=== PATIENT | female | born 1985 | race American Indian/Alaskan Native ===

== ENCOUNTER 2016-12-03 18:40 | Emergency (ER) | payer SELFPAY ==
[2016-12-03 18:49] VITALS: BP 137/88
--- NOTE | 2016-12-03 18:53 | Emergency Department Report ---
Chief Complaint: Abdominal Pain Stated Complaint: ABD PAIN,CANNOT EAT,ANXIETY Time Seen by Provider: 12/03/16 18:51 - HPI History of Present Illness: pt c/o 1 month of abd pain and vomiting. - ROS Review of Systems: + n/v + abd pain - Exam Vital Signs: Vital Signs 12/03/16 18:46 Temperature 98.7 F Pulse Rate 84 Respiratory 18 Rate Blood Pressure 137/88 O2 Sat by Pulse 100 Oximetry Physical Exam: RUQ ttp abd soft MSE screening note: Focused history and physical exam performed. Due to findings the following was ordered: labs, us ED Disposition for MSE Condition: Stable Instructions: Abdominal Pain (ED)
[2016-12-03 19:16] LABS: Basophils % (Auto) 0.3 % (0.0-1.8); Eosinophils % (Auto) 2.1 % (0.0-4.3); Hemoglobin 11.3 gm/dl (10.1-14.3); Mean Corpuscular HGB Conc 32 % (30-34); Mean Corpuscular Hemoglobin 26 pg (28-32); Mean Corpuscular Volume 81 fl (79-97); Platelet Count 209 K/mm3 (140-440); Red Blood Count 4.34 M/mm3 (3.65-5.03); White Blood Count 6.4 K/mm3 (4.5-11.0)
[2016-12-03 19:43] LABS: Alanine Aminotransferase 6 units/L (7-56); Albumin 4.2 g/dL (3.9-5); Albumin/Globulin Ratio 1.3 %; Alkaline Phosphatase 38 units/L (35-129); Anion Gap 18 mmol/L; BUN/Creatinine Ratio 13.33; Blood Urea Nitrogen 8 mg/dL (7-17); Calcium 9.3 mg/dL (8.4-10.2); Carbon Dioxide 24 mmol/L (22-30); Chloride 97.6 mmol/L (98-107); Glucose 107 mg/dL (65-100); Lipase 39 units/L (13-60); Potassium 3.5 mmol/L (3.6-5.0); Sodium 136 mmol/L (137-145); Total Protein 7.5 g/dL (6.3-8.2)
[2016-12-03 19:46] LABS: Bilirubin,Urine NEG (Negative); Blood,Urine NEG (Negative); Ketones,Urine 20 mg/dL (Negative); Leukocyte Esterase,Urine NEG (Negative); Mucus,Urine 2+ /HPF; Nitrite,Urine NEG (Negative); Protein,Urine <15 mg/dL mg/dL (Negative)
--- NOTE | 2016-12-03 20:34 | Ultrasound Report ---
FINAL REPORT EXAM: US ABDOMEN LIMITED HISTORY: RUQ tenderness and vomiting TECHNIQUE: Directed sonography of the right upper quadrant. PRIORS: None. FINDINGS: Gallbladder is of normal size and echogenicity, with tiny and echogenic, but nonshadowing focus noted along the dependent wall. No other apparent echogenic or shadowing calculi. Wall thickness within normal limits. Intra-and extrahepatic bile ducts are of normal caliber. Liver has normal homogeneous echogenicity without focal abnormalities. Right kidney measures 10 cm in longest dimension and is grossly unremarkable. Visualized pancreatic parenchyma grossly unremarkable. IMPRESSION: 1. No acute findings.
--- NOTE | 2016-12-07 11:24 | ED Elopement Review ---
ED Pt Elopement review - Results review Lab results: Laboratory Tests 12/03/16 12/03/16 12/03/16 18:53 18:53 18:53 WBC 6.4 RBC 4.34 Hgb 11.3 Hct 35.0 MCV 81 MCH 26 L MCHC 32 RDW 17.0 H Plt Count 209 Lymph % (Auto) 36.3 H [place] % (Auto) 6.2 Eos % (Auto) 2.1 Baso % (Auto) 0.3 Lymph # 2.3 [place] # 0.4 Eos # 0.1 Baso # 0.0 Seg Neutrophils % 55.1 Seg Neutrophils # 3.5 Sodium 136 L Potassium 3.5 L Chloride 97.6 L Carbon Dioxide 24 Anion Gap 18 BUN 8 Creatinine 0.6 L Estimated GFR > 60 BUN/Creatinine Ratio 13.33 Glucose 107 H Calcium 9.3 Total Bilirubin 0.40 AST 12 ALT 6 L Alkaline Phosphatase 38 Total Protein 7.5 Albumin 4.2 Albumin/Globulin Ratio 1.3 Lipase 39 HCG, Qual Negative Urine Color Urine Turbidity Urine pH Ur Specific [place] Urine Protein Urine Glucose (UA) Urine Ketones Urine Blood Urine Nitrite Urine Bilirubin Urine Urobilinogen Ur Leukocyte Esterase Urine WBC (Auto) Urine RBC (Auto) U Epithel Cells (Auto) Urine Mucus 12/03/16 19:31 WBC RBC Hgb Hct MCV MCH MCHC RDW Plt Count Lymph % (Auto) [place] % (Auto) Eos % (Auto) Baso % (Auto) Lymph # [place] # Eos # Baso # Seg Neutrophils % Seg Neutrophils # Sodium Potassium Chloride Carbon Dioxide Anion Gap BUN Creatinine Estimated GFR BUN/Creatinine Ratio Glucose Calcium Total Bilirubin AST ALT Alkaline Phosphatase Total Protein Albumin Albumin/Globulin Ratio Lipase HCG, Qual Urine Color Yellow Urine Turbidity Clear Urine pH 6.0 Ur Specific [place] 1.019 Urine Protein <15 mg/dl Urine Glucose (UA) Neg Urine Ketones 20 Urine Blood Neg Urine Nitrite Neg Urine Bilirubin Neg Urine Urobilinogen 2.0 Ur Leukocyte Esterase Neg Urine WBC (Auto) 2.0 Urine RBC (Auto) 7.0 U Epithel Cells (Auto) 8.0 Urine Mucus 2+ - Call Back decision Pt Call Back Decision: No action required
== END 2016-12-04 05:57 | disposition left against medical advice (07) ==
LOC: ED 18:40
DX: R10.9 Unspecified abdominal pain (principal); R41.9 Unspecified symptoms and signs involving cognitive functions and awareness; R11.2 Nausea with vomiting, unspecified; Z53.21 Procedure and treatment not carried out due to patient leaving prior to being seen by health care provider
CPT/HCPCS: 36415; 76705; 80053; 81001; 83690; 84703; 85025

== ENCOUNTER 2016-12-05 15:13 | Emergency (ER) | payer SELFPAY ==
[2016-12-05 16:40] LABS: Alanine Aminotransferase 7 units/L (7-56); Albumin 4.1 g/dL (3.9-5); Albumin/Globulin Ratio 1.4 %; Alkaline Phosphatase 40 units/L (35-129); BUN/Creatinine Ratio 11.42; Blood Urea Nitrogen 8 mg/dL (7-17); Carbon Dioxide 22 mmol/L (22-30); Glucose 95 mg/dL (65-100); Lipase 47 units/L (13-60)
[2016-12-05 16:41] LABS: Anion Gap 18 mmol/L; Chloride 100.4 mmol/L (98-107); Potassium 4.1 mmol/L (3.6-5.0); Sodium 136 mmol/L (137-145)
[2016-12-05 17:11] LABS: Basophils % (Auto) 0.3 % (0.0-1.8); Eosinophils % (Auto) 4.2 % (0.0-4.3); Hematocrit 35.3 % (30.3-42.9); Hemoglobin 11.3 gm/dl (10.1-14.3); Mean Corpuscular HGB Conc 32 % (30-34); Mean Corpuscular Hemoglobin 26 pg (28-32); Mean Corpuscular Volume 82 fl (79-97); Platelet Count 210 K/mm3 (140-440); Red Blood Count 4.29 M/mm3 (3.65-5.03); Red Cell Distribution Width 17.6 % (13.2-15.2); White Blood Count 5.6 K/mm3 (4.5-11.0)
[2016-12-05] MEDS ORDERED: ATIVAN PO ONE (20:42)
[2016-12-05] MEDS ORDERED: ZOFRAN ODT PO ONE (20:42)
--- NOTE | 2016-12-05 20:45 | Emergency Department Report ---
ED General Adult HPI - General Chief complaint: Abdominal Pain Stated complaint: ABD PAIN/ANXIETY/VOMITING Time Seen by Provider: 12/05/16 20:30 Source: patient Mode of arrival: Ambulatory Limitations: No Limitations - History of Present Illness Initial comments: Patient comes into the ER today with complaints of abdominal pain for the past week. Patient states that the pain is worse with any type of eating. Patient describes the pain as crampy to sharp. Patient states that anytime she eats anything that the food will go down but after anywhere from 5-30 minutes, the food will come right back up. Patient states that she frequently has some diarrhea with her vomiting and abdominal pain as well. Patient also notes that she has been having a lot of anxiety for the past week as well. Patient states that she has made an appointment with mental health and is asking if she can have something for her panic attacks in the meantime. Patient denies any suicidal or homicidal ideations. - Related Data Previous Rx's Medication Instructions Recorded Last Taken Type LORazepam [Ativan] 0.5 mg PO BID PRN #20 tab 12/05/16 Unknown Rx Pantoprazole [Protonix] 40 mg PO QDAY #30 tablet 12/05/16 Unknown Rx Promethazine [Phenergan TAB] 25 mg PO Q8HR PRN #25 tab 12/05/16 Unknown Rx Allergies Allergy/AdvReac Type Severity Reaction Status Date / Time codeine Allergy Hives Verified 12/03/16 18:49 hydroxyzine HCl Allergy Shortness Verified 12/03/16 18:50 [From Vistaril] of Breath hydroxyzine pamoate Allergy Shortness Verified 12/03/16 18:50 [From Vistaril] of Breath methocarbamol [From Robaxin] Allergy Shortness Verified 12/03/16 18:50 of Breath sulfamethoxazole Allergy Hives Verified 12/03/16 18:50 [From Bactrim] trimethoprim [From Bactrim] Allergy Hives Verified 12/03/16 18:50 ED Review of Systems ROS: Stated complaint: ABD PAIN/ANXIETY/VOMITING Other details as noted in HPI Constitutional: denies: chills, fever Eyes: denies: eye pain, eye discharge, vision change ENT: denies: ear pain, throat pain Respiratory: denies: cough, shortness of breath, wheezing Cardiovascular: denies: chest pain, palpitations Endocrine: no symptoms reported Gastrointestinal: abdominal pain, nausea, vomiting, diarrhea. denies: constipation, hematemesis, melena, hematochezia Genitourinary: denies: urgency, dysuria, discharge Musculoskeletal: denies: back pain, joint swelling, arthralgia Skin: denies: rash, lesions Neurological: denies: headache, weakness, paresthesias Psychiatric: anxiety. denies: depression Hematological/Lymphatic: denies: easy bleeding, easy bruising ED Past Medical Hx - Past Medical History Previous Medical History?: Yes Hx GERD: Yes Hx Psychiatric Treatment: Yes (anxiety,depression) Additional medical history: anemia - Surgical History Past Surgical History?: No - Social History Smoking Status: Current Every Day Smoker Substance Use Type: Alcohol - Medications Home Medications: Home Medications Medication Instructions Recorded Confirmed Last Taken Type LORazepam [Ativan] 0.5 mg PO BID PRN #20 tab 12/05/16 Unknown Rx Pantoprazole [Protonix] 40 mg PO QDAY #30 tablet 12/05/16 Unknown Rx Promethazine [Phenergan TAB] 25 mg PO Q8HR PRN #25 tab 12/05/16 Unknown Rx ED Physical Exam - General Limitations: No Limitations General appearance: alert, in no apparent distress - Head Head exam: Present: atraumatic, normocephalic - Eye Eye exam: Present: normal appearance - ENT ENT exam: Present: mucous membranes moist - Neck Neck exam: Present: normal inspection - Respiratory Respiratory exam: Present: normal lung sounds bilaterally. Absent: respiratory distress - Cardiovascular Cardiovascular Exam: Present: regular rate, normal rhythm. Absent: systolic murmur, diastolic murmur, rubs, gallop - GI/Abdominal GI/Abdominal exam: Present: soft, tenderness (right upper quadrant), normal bowel sounds. Absent: guarding, rebound, hyperactive bowel sounds, hypoactive bowel sounds, organomegaly - Extremities Exam Extremities exam: Present: normal inspection - Back Exam Back exam: Present: normal inspection - Neurological Exam Neurological exam: Present: alert, oriented X3, CN II-XII intact - Psychiatric Psychiatric exam: Present: normal affect, normal mood, anxious - Skin Skin exam: Present: warm, dry, intact, normal color. Absent: rash ED Course Vital Signs 12/05/16 15:39 Temperature 98.5 F Pulse Rate 63 Respiratory 20 Rate Blood Pressure 112/67 O2 Sat by Pulse 100 Oximetry ED Medical Decision Making - Lab Data Result diagrams: 12/05/16 15:54 12/05/16 15:54 Lab Results 12/05/16 12/05/16 Range/Units 15:54 15:54 WBC 5.6 (4.5-11.0) K/mm3 RBC 4.29 (3.65-5.03) M/mm3 Hgb 11.3 (10.1-14.3) gm/dl Hct 35.3 (30.3-42.9) % MCV 82 (79-97) fl MCH 26 L (28-32) pg MCHC 32 (30-34) % RDW 17.6 H (13.2-15.2) % Plt Count 210 (140-440) K/mm3 Lymph % (Auto) 34.1 (13.4-35.0) % [place] % (Auto) 9.4 H (0.0-7.3) % Eos % (Auto) 4.2 (0.0-4.3) % Baso % (Auto) 0.3 (0.0-1.8) % Lymph # 1.9 (1.2-5.4) K/mm3 [place] # 0.5 (0.0-0.8) K/mm3 Eos # 0.2 (0.0-0.4) K/mm3 Baso # 0.0 (0.0-0.1) K/mm3 Seg Neutrophils % 52.0 (40.0-70.0) % Seg Neutrophils # 2.9 (1.8-7.7) K/mm3 Sodium 136 L (137-145) mmol/L Potassium 4.1 (3.6-5.0) mmol/L Chloride 100.4 (98-107) mmol/L Carbon Dioxide 22 (22-30) mmol/L Anion Gap 18 mmol/L BUN 8 (7-17) mg/dL Creatinine 0.7 (0.7-1.2) mg/dL Estimated GFR > 60 ml/min BUN/Creatinine Ratio 11.42 % Glucose 95 (65-100) mg/dL Calcium 9.0 (8.4-10.2) mg/dL Total Bilirubin 0.40 (0.1-1.2) mg/dL AST 13 (5-40) units/L ALT 7 (7-56) units/L Alkaline Phosphatase 40 (35-129) units/L Total Protein 7.0 (6.3-8.2) g/dL Albumin 4.1 (3.9-5) g/dL Albumin/Globulin Ratio 1.4 % Lipase 47 (13-60) units/L - Medical Decision Making Patient is nontoxic and hemodynamically stable. Patient was apparently here 2 days ago and left prior to treatment but did apparently have an ultrasound of her gallbladder performed here in this ER. Results obtained and reviewed with patient room today. Ultrasound gallbladder was unremarkable. Based on examination and history had to have some suspicion as to her symptoms being related to her gallbladder. I will refer patient to gastroenterologists and encourage patient to keep her mental health evaluation. Patient is in agreement with treatment plan the patient is stable for discharge. Critical care attestation.: If time is entered above; I have spent that time in minutes in the direct care of this critically ill patient, excluding procedure time. ED Disposition Clinical Impression: Right upper quadrant abdominal pain, Nausea vomiting and diarrhea, Anxiety Disposition: TO HOME OR SELFCARE Is pt being admited?: No Does the pt Need Aspirin: No Condition: Good Instructions: Biliary Colic (ED), Abdominal Pain (ED), Anxiety (ED), Gastroesophageal Reflux Disease (ED) Prescriptions: LORazepam [Ativan] 0.5 mg PO BID PRN #20 tab PRN Reason: Anxiety Pantoprazole [Protonix] 40 mg PO QDAY #30 tablet Promethazine [Phenergan TAB] 25 mg PO Q8HR PRN #25 tab PRN Reason: Nausea Referrals: PRIMARY CARE, [Primary Care Provider] - 3-5 Days [facility] [Provider Group] - 3-5 Days Time of Disposition: 21:44
[2016-12-05 21:25] LABS: Bilirubin,Urine NEG (Negative); Blood,Urine NEG (Negative); Ketones,Urine NEG (Negative); Leukocyte Esterase,Urine NEG (Negative); Mucus,Urine FEW /HPF; Nitrite,Urine NEG (Negative); Protein,Urine <15 mg/dL mg/dL (Negative); Urobilinogen,Urine < 2.0 mg/dL (<2.0)
[2016-12-05 22:11] VITALS: BP 114/75
== END 2016-12-05 22:08 | disposition home or self-care (01) ==
LOC: ED 15:13
DX: R10.11 Right upper quadrant pain (principal); R11.2 Nausea with vomiting, unspecified; R19.7 Diarrhea, unspecified; F41.9 Anxiety disorder, unspecified; F17.200 Nicotine dependence, unspecified, uncomplicated; D64.9 Anemia, unspecified; F32.9 Major depressive disorder, single episode, unspecified; Z88.2 Allergy status to sulfonamides; Z88.8 Allergy status to other drugs, medicaments and biological substances; Z88.5 Allergy status to narcotic agent
CPT/HCPCS: 36415; 80053; 81001; 81025; 83690; 85025; 99283; Q0162

== ENCOUNTER 2016-12-12 18:03 | Emergency (ER) | payer SELFPAY ==
[2016-12-12 19:12] LABS: Basophils % (Auto) 0.5 % (0.0-1.8); Eosinophils % (Auto) 3.4 % (0.0-4.3); Hematocrit 36.5 % (30.3-42.9); Hemoglobin 11.7 gm/dl (10.1-14.3); Mean Corpuscular HGB Conc 32 % (30-34); Mean Corpuscular Hemoglobin 27 pg (28-32); Mean Corpuscular Volume 83 fl (79-97); Platelet Count 182 K/mm3 (140-440); Red Blood Count 4.38 M/mm3 (3.65-5.03); Red Cell Distribution Width 17.3 % (13.2-15.2); White Blood Count 5.1 K/mm3 (4.5-11.0)
[2016-12-12 19:17] LABS: Urine Drugs of Abuse Note Disclamer
[2016-12-12 19:31] LABS: Anion Gap 17 mmol/L; Blood Urea Nitrogen 10 mg/dL (7-17); Calcium 9.6 mg/dL (8.4-10.2); Carbon Dioxide 26 mmol/L (22-30); Chloride 101.6 mmol/L (98-107); Glucose 85 mg/dL (65-100); Potassium 4.5 mmol/L (3.6-5.0); Sodium 140 mmol/L (137-145)
[2016-12-12 19:35] LABS: Bilirubin,Urine NEG (Negative); Blood,Urine NEG (Negative); Ketones,Urine NEG (Negative); Leukocyte Esterase,Urine NEG (Negative); Mucus,Urine FEW /HPF; Nitrite,Urine NEG (Negative); Protein,Urine <15 mg/dL mg/dL (Negative); Urobilinogen,Urine < 2.0 mg/dL (<2.0); WBC,Urine < 1.0 /HPF (0.0-6.0)
[2016-12-12] MEDS ORDERED: NACL 0.9% 1000 ML 1,000 ML IV ONE (21:47)
--- NOTE | 2016-12-12 22:05 | Emergency Department Report ---
ED Allergic Reaction HPI - General Chief complaint: Allergic Reaction Stated complaint: DIZZINESS/LIGHTHEADED Time Seen by Provider: 12/12/16 21:46 Source: patient, EMS Mode of arrival: Ambulatory Limitations: No Limitations - History of Present Illness Initial Comments: Pt is a 31 yr old F with a h/o anxiety who presents after an adverse reaction to taking presumed xanax. Pt reports she was having some anxiety when she asked her friend for a 1/2 tab of xanax. Pt reports after she took this tab she did not feel how she usually does after taking xanax. Pt reported jitters, nausea, and the opposite of what she usually feels. Pt reports she used to take xanax 2mg BID for a while 2 years ago, but has not taken any in a long time. Pt is not sure where this xanax came from. Otherwise no fevers, chills, OLGUIN, dizziness , vomiting, CP, SOB, abd pain, travel, or sick contacts. - Related Data Previous Rx's Medication Instructions Recorded Last Taken Type LORazepam [Ativan] 0.5 mg PO BID PRN #20 tab 12/05/16 Unknown Rx Ondansetron [Zofran Odt] 4 mg PO TID PRN #25 tab.rapdis 12/05/16 Unknown Rx Pantoprazole [Protonix] 40 mg PO QDAY #30 tablet 12/05/16 Unknown Rx Promethazine [Phenergan TAB] 25 mg PO Q8HR PRN #25 tab 12/05/16 Unknown Rx Allergies Allergy/AdvReac Type Severity Reaction Status Date / Time codeine Allergy Hives Verified 12/03/16 18:49 hydroxyzine HCl Allergy Shortness Verified 12/03/16 18:50 [From Vistaril] of Breath hydroxyzine pamoate Allergy Shortness Verified 12/03/16 18:50 [From Vistaril] of Breath methocarbamol [From Robaxin] Allergy Shortness Verified 12/03/16 18:50 of Breath sulfamethoxazole Allergy Hives Verified 12/03/16 18:50 [From Bactrim] trimethoprim [From Bactrim] Allergy Hives Verified 12/03/16 18:50 ED Review of Systems ROS: Stated complaint: DIZZINESS/LIGHTHEADED Other details as noted in HPI Comment: All other systems reviewed and negative ED Past Medical Hx - Past Medical History Previous Medical History?: Yes Hx GERD: Yes Hx Psychiatric Treatment: Yes (anxiety,depression) Additional medical history: anemia - Surgical History Past Surgical History?: No - Social History Smoking Status: Current Every Day Smoker Substance Use Type: Marijuana, Prescribed, Tranquilizers - Medications Home Medications: Home Medications Medication Instructions Recorded Confirmed Last Taken Type LORazepam [Ativan] 0.5 mg PO BID PRN #20 tab 12/05/16 Unknown Rx Ondansetron [Zofran Odt] 4 mg PO TID PRN #25 tab.rapdis 12/05/16 Unknown Rx Pantoprazole [Protonix] 40 mg PO QDAY #30 tablet 12/05/16 Unknown Rx Promethazine [Phenergan TAB] 25 mg PO Q8HR PRN #25 tab 12/05/16 Unknown Rx ED Physical Exam - General Limitations: No Limitations General appearance: alert, in no apparent distress - Head Head exam: Present: atraumatic, normocephalic - Eye Eye exam: Present: normal appearance - ENT ENT exam: Present: mucous membranes moist - Neck Neck exam: Present: normal inspection - Respiratory Respiratory exam: Present: normal lung sounds bilaterally. Absent: respiratory distress - Cardiovascular Cardiovascular Exam: Present: regular rate, normal rhythm. Absent: systolic murmur, diastolic murmur, rubs, gallop - GI/Abdominal GI/Abdominal exam: Present: soft, normal bowel sounds - Extremities Exam Extremities exam: Present: normal inspection - Back Exam Back exam: Present: normal inspection - Neurological Exam Neurological exam: Present: alert, oriented X3 - Psychiatric Psychiatric exam: Present: normal affect, normal mood - Skin Skin exam: Present: warm, dry, intact, normal color. Absent: rash ED Course Vital Signs 12/12/16 12/12/16 18:42 21:42 Temperature 98.7 F 98.2 F Pulse Rate 68 65 Respiratory 16 18 Rate Blood Pressure 116/74 Blood Pressure 116/71 [Left] O2 Sat by Pulse 100 100 Oximetry ED Medical Decision Making - Lab Data Result diagrams: 12/12/16 19:03 12/12/16 19:03 - EKG Data -: EKG Interpreted by Me - EKG Data 12/12/16 22:05 EKG 2159, normal sinus rhythm with sinus arrhythmia at 76 bpm, QTc 465 ms, normal axis, no LVH, no ST changes, no STEMI - Medical Decision Making Instructed patient to refrain from taking other people's medications Given tylenol 1gm for OLGUIN Critical care attestation.: If time is entered above; I have spent that time in minutes in the direct care of this critically ill patient, excluding procedure time. ED Disposition Clinical Impression: Accidental overdose, Headache Disposition: DC-01 TO HOME OR SELFCARE Is pt being admited?: No Condition: Stable Instructions: Benzodiazepine Abuse (ED), Acute Headache (ED) Referrals: PRIMARY CARE, [Primary Care Provider] - 3-5 Days
[2016-12-12] MEDS ORDERED: TYLENOL PO ONE (22:31)
[2016-12-12] MEDS ORDERED: ZOFRAN IV ONE (23:22)
[2016-12-12] MEDS ORDERED: ZOFRAN ONE (23:22)
[2016-12-12 23:58] VITALS: BP 108/70
== END 2016-12-12 23:55 | disposition home or self-care (01) ==
LOC: ED 18:03
DX: T65.91XA Toxic effect of unspecified substance, accidental (unintentional), initial encounter (principal); R51 Headache; K21.9 Gastro-esophageal reflux disease without esophagitis; F41.9 Anxiety disorder, unspecified; F32.9 Major depressive disorder, single episode, unspecified; D64.9 Anemia, unspecified; F17.200 Nicotine dependence, unspecified, uncomplicated; F12.90 Cannabis use, unspecified, uncomplicated; Z88.5 Allergy status to narcotic agent; Y92.89 Other specified places as the place of occurrence of the external cause
CPT/HCPCS: 36415; 80048; 80307; 81001; 81025; 85025; 93005; 93010; 96361; 96374; 99284; G0480; J2405; J7030; 80320

== ENCOUNTER 2017-11-07 21:09 | Emergency (ER) | payer SELFPAY ==
[2017-11-07 23:16] LABS: Basophils % (Auto) 0.3 % (0.0-1.8); Eosinophils # (Auto) 0.2 K/mm3 (0.0-0.4); Eosinophils % (Auto) 3.4 % (0.0-4.3); Hematocrit 32.3 % (30.3-42.9); Hemoglobin 10.4 gm/dl (10.1-14.3); Lymphocytes # (Auto) 2.7 K/mm3 (1.2-5.4); Lymphocytes % (Auto) 48.9 % (13.4-35.0); Mean Corpuscular HGB Conc 32 % (30-34); Mean Corpuscular Hemoglobin 26 pg (28-32); Mean Corpuscular Volume 81 fl (79-97); Monocytes # (Auto) 0.5 K/mm3 (0.0-0.8); Monocytes % (Auto) 8.8 % (0.0-7.3); Platelet Count 220 K/mm3 (140-440); Red Cell Distribution Width 14.5 % (13.2-15.2)
[2017-11-07 23:30] LABS: Alanine Aminotransferase 7 units/L (7-56); Albumin 4.6 g/dL (3.9-5); BUN/Creatinine Ratio 18; Blood Urea Nitrogen 11 mg/dL (7-17); Calcium 9.5 mg/dL (8.4-10.2); Hemolysis Index 1
[2017-11-07] MEDS ORDERED: ZOFRAN IV ONE (23:41)
[2017-11-07] MEDS ORDERED: LIDOCAINE VISCOUS 2% PO ONE (23:41)
[2017-11-07] MEDS ORDERED: NACL 0.9% 1000 ML 1,000 ML IV ONE (23:41)
[2017-11-07] MEDS ORDERED: ALUM-MAG HYDROX-SIMETH 200-200-20MG/5ML PO ONE (23:41)
--- NOTE | 2017-11-07 23:56 | Emergency Department Report ---
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 The patient says that when she is eating she feels short of breath but it stops as soon as she has done and she says it feels like the food sits in the middle of her chest. She has been trying to take Zantac 150 mg twice daily for her symptoms without much relief. She does have a history of GERD and says that she has set up to see a shake feeder this coming Friday, in 5 days. No recent travel or sick contacts at home. She denies any fever, back pain, cough, dysuria, vaginal bleeding or discharge. She is still currently slightly nauseated. She says that her upper abdominal pain is a 6 out of 10 in intensity. ED Past Medical Hx - Past Medical History Previous Medical History?: Yes Hx GERD: Yes Hx Psychiatric Treatment: Yes (anxiety,depression) Additional medical history: anemia - Surgical History Past Surgical History?: No - Social History Smoking Status: Never Smoker Substance Use Type: None - Medications Home Medications: Home Medications Medication Instructions Recorded Confirmed Last Taken Type LORazepam [Ativan] 0.5 mg PO BID PRN #20 tab 12/05/16 Unknown Rx Ondansetron [Zofran Odt] 4 mg PO TID PRN #25 tab.rapdis 12/05/16 Unknown Rx Pantoprazole [Protonix] 40 mg PO QDAY #30 tablet 12/05/16 Unknown Rx Promethazine [Phenergan TAB] 25 mg PO Q8HR PRN #25 tab 12/05/16 Unknown Rx Ondansetron [Zofran Odt] 4 mg PO Q8H PRN #10 tab.rapdis 11/08/17 Unknown Rx ED Review of Systems ROS: Stated complaint: N/V Other details as noted in HPI Comment: All other systems reviewed and negative Constitutional: denies: chills, fever Eyes: denies: eye pain, eye discharge, vision change ENT: denies: ear pain, throat pain Respiratory: denies: cough, wheezing Cardiovascular: denies: chest pain, palpitations Gastrointestinal: abdominal pain, nausea, vomiting Genitourinary: denies: urgency, dysuria, discharge Musculoskeletal: denies: back pain, joint swelling, arthralgia Skin: denies: rash, lesions Neurological: denies: headache, weakness, paresthesias Physical Exam - Physical Exam Vital Signs: Vital Signs 11/07/17 22:34 Temperature 98.4 F Pulse Rate 66 Respiratory 18 Rate Blood Pressure 117/74 O2 Sat by Pulse 99 Oximetry Physical Exam: GENERAL: The patient is well-developed well-nourished. HENT: Normocephalic. Atraumatic. Patient has moist mucous membranes. EYES: Extraocular motions are intact. Pupils equal reactive to light bilaterally. NECK: Supple. Trachea is midline. CHEST/LUNGS: Clear to auscultation. There is no respiratory distress noted. HEART/CARDIOVASCULAR: Regular. There is no tachycardia. There is no murmur. ABDOMEN: Abdomen is soft. There is some upper abdominal tenderness to palpation. No guarding or rebound tenderness. Patient has normal bowel sounds. There is no abdominal distention. SKIN: Skin is warm and dry. NEURO: The patient is awake, alert, and oriented. The patient is cooperative. The patient has no focal neurologic deficits. The patient has normal speech. MUSCULOSKELETAL: There is no tenderness or deformity. There is no limitation range of motion. There is no evidence of acute injury. ED Course Vital Signs 11/07/17 22:34 Temperature 98.4 F Pulse Rate 66 Respiratory 18 Rate Blood Pressure 117/74 O2 Sat by Pulse 99 Oximetry ED Medical Decision Making - Lab Data Result diagrams: 11/07/17 22:48 11/07/17 22:48 - Radiology Data Radiology results: report reviewed, image reviewed interpreted by me: Chest x-ray does not show any acute process. There are no pleural effusions, obvious pneumonia and there is no pneumothorax. Abdominal x-ray shows nonspecific nonobstructive bowel gas. Abdominal ultrasound shows no cholelithiasis or evidence of cholecystitis. There is no biliary ductal dilatation. The pancreas was normal as visualized with suboptimal depiction of the pancreatic tail. - Medical Decision Making Patient appears with the complaint of some nausea and vomiting and upper abdominal pain. During her ED course she started complaining of some right upper quadrant and/or lateral abdominal pain. She was given antiemetic medication and eventually she was given a tramadol for her discomfort. Labs were unremarkable and did not show any etiology of her symptoms. Normal chest and abdominal x-rays. Ultrasound did not show any cholelithiasis, cholecystitis , biliary ductal dilation, or any signs of abnormalities of the pancreas despite a mild elevation in the lipase level. Since patient still complained of some sharp right lateral abdominal pains, I suggested/encouraged a CT scan of the abdomen and pelvis to be done. However the patient did not want this imaging done at this time. She has good follow-up with gastroenterology coming up next week. She was discharged home with antiemetics and encouraged to return to the emergency Department with any worsening of her symptoms or any acute distress. - Differential Diagnosis pancreatitis, cholecystitis, cholelithiasis, GERD Critical Care Time: No Critical care attestation.: If time is entered above; I have spent that time in minutes in the direct care of this critically ill patient, excluding procedure time. ED Disposition Clinical Impression: Nausea & vomiting Qualifiers: Vomiting type: unspecified Vomiting Intractability: non-intractable Qualified Code(s): R11.2 - Nausea with vomiting, unspecified Abdominal pain Qualifiers: Abdominal location: unspecified location Qualified Code(s): R10.9 - Unspecified abdominal pain Disposition: DC- TO HOME OR SELFCARE Is pt being admited?: No Condition: Stable Instructions: Acute Nausea and Vomiting (ED), Abdominal Pain (ED) Additional Instructions: Please follow up with your primary care physician as well as with your previously scheduled appointment with gastroenterology. Return to the emergency Department with any worsening of your symptoms or any acute distress. Prescriptions: Ondansetron [Zofran Odt] 4 mg PO Q8H PRN #10 tab.rapdis PRN Reason: Nausea Referrals: PRIMARY CARE, [Primary Care Provider] - 3-5 Days Time of Disposition: 03:57
[2017-11-08 00:36] LABS: Bacteria,Urine 1+ /HPF (Negative); Bilirubin,Urine NEG (Negative); Blood,Urine NEG (Negative); Color,Urine Yellow (Yellow); Hyaline Casts,Urine 1 /LPF; Mucus,Urine FEW /HPF; Protein,Urine <15 mg/dL mg/dL (Negative); Urobilinogen,Urine < 2.0 mg/dL (<2.0)
[2017-11-08 01:56] VITALS: BP 104/64
[2017-11-08] MEDS ORDERED: ULTRAM PO ONE (02:42)
--- NOTE | 2017-11-08 08:59 | XRay Report ---
FINAL REPORT PROCEDURE: XR ABD SERIES W CXR 1V TECHNIQUE: Abdominal series complete, including supine and upright AP views of the abdomen and frontal chest. HISTORY: Abd pain COMPARISON: No prior studies are available for comparison. FINDINGS: Heart: Normal. Mediastinum/Vessels: Normal. Lungs/Pleural space: Normal. Bowel gas pattern: Nonobstructive. Masses or calcifications: None. Bony structures: No acute osseous abnormality. Other: No free intraperitoneal air. IMPRESSION: No acute abnormality.
--- NOTE | 2017-11-08 09:00 | Ultrasound Report ---
FINAL REPORT PROCEDURE: US ABDOMEN LIMITED TECHNIQUE: Real-time sonography in multiple planes of the gallbladder fossa and CBD with imaging of the adjacent liver, pancreas, and right kidney was performed with image documentation. CPT 11550 HISTORY: Upper abd pain COMPARISON: No prior studies are available for comparison. FINDINGS: Liver: Normal size and echotexture with no evidence of cystic or solid mass lesion. Gallbladder: Gallbladder is contracted. There are no stones. There is no wall thickening. There is minimal pericholecystic fluid which is nonspecific.. Intrahepatic bile ducts: Normal . Extrahepatic bile ducts: Normal . Pancreas: Normal as visualized with suboptimal depiction of the pancreatic tail. Right kidney: Normal echotexture. No focal renal mass, calculus, or hydronephrosis. Other: No free fluid. IMPRESSION: There is no cholelithiasis or evidence of cholecystitis. There is no biliary ductal dilatation.
== END 2017-11-08 04:09 | disposition home or self-care (01) ==
LOC: ED 21:09
DX: R11.2 Nausea with vomiting, unspecified (principal); R10.10 Upper abdominal pain, unspecified; K21.9 Gastro-esophageal reflux disease without esophagitis
CPT/HCPCS: 36415; 74022; 76705; 80053; 81001; 83690; 84703; 85025; 96361; 96374; 99284; J2405; J7030

== ENCOUNTER 2018-06-23 13:38 | Emergency (ER) | payer SELFPAY ==
[2018-06-23 13:55] VITALS: BP 122/81
[2018-06-23] MEDS ORDERED: PROVENTIL IH ONE (15:08)
[2018-06-23] MEDS ORDERED: TESSALON PERLES PO ONE (15:13)
--- NOTE | 2018-06-23 15:16 | Emergency Department Report ---
ED General Adult HPI - General Chief complaint: Dyspnea/Respdistress Stated complaint: CHEST PAIN/WHEEZING Time Seen by Provider: 06/23/18 15:08 Source: patient Mode of arrival: Ambulatory Limitations: No Limitations - History of Present Illness Initial comments: Patient presents emergency Department with chief complaint of a cough for the last week. Patient states she was seen here last week and given steroids for her cough. Patient states she returned today because she is not getting better. Patient denies any chest pain, abdominal pain, or headache. There are no other associated symptoms. -: Sudden Radiation: non-radiation Severity scale (0 -10): 0 Improves with: cold therapy Worsens with: none Associated Symptoms: denies other symptoms Treatments Prior to Arrival: none - Related Data Previous Rx's Medication Instructions Recorded Last Taken Type LORazepam [Ativan] 0.5 mg PO BID PRN #20 tab 12/05/16 Unknown Rx Ondansetron [Zofran Odt] 4 mg PO TID PRN #25 tab.rapdis 12/05/16 Unknown Rx Promethazine [Phenergan TAB] 25 mg PO Q8HR PRN #25 tab 12/05/16 Unknown Rx Loperamide [Imodium] 2 mg PO Q2HR #15 capsule 12/05/17 Unknown Rx Mag Hydrox/Aluminum Hyd/Simeth 30 ml PO QID PRN #1 bottle 12/05/17 Unknown Rx [Maalox Advanced Suspension] Ondansetron [Zofran Odt] 4 mg PO Q8H PRN #20 tab.rapdis 12/05/17 Unknown Rx Fluconazole [Diflucan TAB] 150 mg PO ONCE #1 tablet 02/21/18 Unknown Rx HYDROcodone/APAP 5-325 [[place] 1 - 2 each PO Q6HR PRN #10 tablet 02/21/18 Unknown Rx 5/325] ALBUTEROL Inhaler(NF) [VENTOLIN 1 puff IH PRN #1 inha 05/19/18 Unknown Rx Inhaler(NF)] Dextromethorphan HBr [Tussin Cough] 15 mg PO TID 7 Days #1 bottle 05/19/18 Unknown Rx Ibuprofen [Motrin 800 MG tab] 800 mg PO Q8HR PRN #20 tablet 05/19/18 Unknown Rx predniSONE [Deltasone] 10 mg PO QDAY #4 tab 05/19/18 Unknown Rx ALBUTEROL Inhaler(NF) [VENTOLIN 2 puff IH Q4HR #1 inha 06/23/18 Unknown Rx Inhaler(NF)] Benzonatate [Tessalon Perles] 100 mg PO Q8HR PRN #20 capsule 06/23/18 Unknown Rx Hydrocodone/Chlorphen P-Stirex 115 ml PO Q12HR PRN #180 skip.er.12h 06/23/18 Unknown Rx [Tussionex Pennkinetic Susp] predniSONE [Deltasone] 20 mg PO QDAY #15 tab 06/23/18 Unknown Rx Allergies Allergy/AdvReac Type Severity Reaction Status Date / Time codeine Allergy Hives Verified 12/03/16 18:49 hydroxyzine HCl Allergy Shortness Verified 12/03/16 18:50 [From Vistaril] of Breath hydroxyzine pamoate Allergy Shortness Verified 12/03/16 18:50 [From Vistaril] of Breath methocarbamol [From Robaxin] Allergy Shortness Verified 12/03/16 18:50 of Breath sulfamethoxazole Allergy Hives Verified 12/03/16 18:50 [From Bactrim] trimethoprim [From Bactrim] Allergy Hives Verified 12/03/16 18:50 ED Review of Systems ROS: Stated complaint: CHEST PAIN/WHEEZING Other details as noted in HPI Constitutional: denies: chills, fever Eyes: denies: eye pain, eye discharge, vision change ENT: denies: ear pain, throat pain Respiratory: cough. denies: shortness of breath, wheezing Cardiovascular: denies: chest pain, palpitations Endocrine: no symptoms reported Gastrointestinal: denies: abdominal pain, nausea, diarrhea Genitourinary: denies: urgency, dysuria, discharge Musculoskeletal: denies: back pain, joint swelling, arthralgia Skin: denies: rash, lesions Neurological: denies: headache, weakness, paresthesias Psychiatric: denies: anxiety, depression Hematological/Lymphatic: denies: easy bleeding, easy bruising ED Past Medical Hx - Past Medical History Previous Medical History?: Yes Hx GERD: Yes Hx Psychiatric Treatment: Yes (anxiety,depression) Additional medical history: anemia, GERD - Surgical History Past Surgical History?: No - Social History Smoking Status: Current Every Day Smoker Substance Use Type: Marijuana - Medications Home Medications: Home Medications Medication Instructions Recorded Confirmed Last Taken Type LORazepam [Ativan] 0.5 mg PO BID PRN #20 tab 12/05/16 Unknown Rx Ondansetron [Zofran Odt] 4 mg PO TID PRN #25 tab.rapdis 12/05/16 Unknown Rx Promethazine [Phenergan TAB] 25 mg PO Q8HR PRN #25 tab 12/05/16 Unknown Rx Loperamide [Imodium] 2 mg PO Q2HR #15 capsule 12/05/17 Unknown Rx Mag Hydrox/Aluminum Hyd/Simeth 30 ml PO QID PRN #1 bottle 12/05/17 Unknown Rx [Maalox Advanced Suspension] Ondansetron [Zofran Odt] 4 mg PO Q8H PRN #20 tab.rapdis 12/05/17 Unknown Rx Fluconazole [Diflucan TAB] 150 mg PO ONCE #1 tablet 02/21/18 Unknown Rx HYDROcodone/APAP 5-325 [[place] 1 - 2 each PO Q6HR PRN #10 tablet 02/21/18 Unknown Rx 5/325] ALBUTEROL Inhaler(NF) [VENTOLIN 1 puff IH PRN #1 inha 05/19/18 Unknown Rx Inhaler(NF)] Dextromethorphan HBr [Tussin Cough] 15 mg PO TID 7 Days #1 bottle 05/19/18 Unknown Rx Ibuprofen [Motrin 800 MG tab] 800 mg PO Q8HR PRN #20 tablet 05/19/18 Unknown Rx predniSONE [Deltasone] 10 mg PO QDAY #4 tab 05/19/18 Unknown Rx ALBUTEROL Inhaler(NF) [VENTOLIN 2 puff IH Q4HR #1 inha 06/23/18 Unknown Rx Inhaler(NF)] Benzonatate [Tessalon Perles] 100 mg PO Q8HR PRN #20 capsule 06/23/18 Unknown Rx Hydrocodone/Chlorphen P-Stirex 115 ml PO Q12HR PRN #180 skip.er.12h 06/23/18 Unknown Rx [Tussionex Pennkinetic Susp] predniSONE [Deltasone] 20 mg PO QDAY #15 tab 06/23/18 Unknown Rx ED Physical Exam - General Limitations: No Limitations General appearance: alert, in no apparent distress - Head Head exam: Present: atraumatic, normocephalic - Eye Eye exam: Present: normal appearance, PERRL, EOMI - ENT ENT exam: Present: mucous membranes moist - Neck Neck exam: Present: normal inspection - Respiratory Respiratory exam: Present: normal lung sounds bilaterally, wheezes. Absent: respiratory distress, rales - Cardiovascular Cardiovascular Exam: Present: regular rate, normal rhythm. Absent: systolic murmur, diastolic murmur, rubs, gallop - GI/Abdominal GI/Abdominal exam: Present: soft, normal bowel sounds. Absent: distended, tenderness - Extremities Exam Extremities exam: Present: normal inspection - Back Exam Back exam: Present: normal inspection - Neurological Exam Neurological exam: Present: alert, oriented X3, CN II-XII intact. Absent: motor sensory deficit - Psychiatric Psychiatric exam: Present: normal affect, normal mood - Skin Skin exam: Present: warm, dry, intact, normal color. Absent: rash ED Course Vital Signs 06/23/18 13:52 Temperature 98.8 F Pulse Rate 87 Respiratory 20 Rate Blood Pressure 122/81 O2 Sat by Pulse 99 Oximetry ED Medical Decision Making - Radiology Data Radiology results: report reviewed - Medical Decision Making Improved with the breathing treatment Critical care attestation.: If time is entered above; I have spent that time in minutes in the direct care of this critically ill patient, excluding procedure time. ED Disposition Clinical Impression: Bronchitis Disposition: DC-01 TO HOME OR SELFCARE Is pt being admited?: No Does the pt Need Aspirin: No Condition: Stable Instructions: Acute Bronchitis (ED) Additional Instructions: return if worse Prescriptions: ALBUTEROL Inhaler(NF) [VENTOLIN Inhaler(NF)] 2 puff IH Q4HR #1 inha Benzonatate [Tessalon Perles] 100 mg PO Q8HR PRN #20 capsule PRN Reason: Cough Hydrocodone/Chlorphen P-Stirex [Tussionex Pennkinetic Susp] 115 ml PO Q12HR PRN #180 skip.er.12h PRN Reason: Cough predniSONE [Deltasone] 20 mg PO QDAY #15 tab Referrals: PRIMARY CARE,MD [Primary Care Provider] - 3-5 Days Time of Disposition: 16:00
--- NOTE | 2018-06-23 15:18 | XRay Report ---
ROUTINE CHEST, TWO VIEWS: HISTORY: Shortness of breath. The trachea, heart, mediastinal contour, lung huffman and bony thorax are unremarkable. IMPRESSION: Unremarkable chest x-ray.
== END 2018-06-23 16:40 | disposition home or self-care (01) ==
LOC: ED 13:38
DX: J40 Bronchitis, not specified as acute or chronic (principal); K21.9 Gastro-esophageal reflux disease without esophagitis; F32.9 Major depressive disorder, single episode, unspecified; F41.9 Anxiety disorder, unspecified; D64.9 Anemia, unspecified; F17.200 Nicotine dependence, unspecified, uncomplicated; F12.10 Cannabis abuse, uncomplicated; Z88.5 Allergy status to narcotic agent; Z88.4 Allergy status to anesthetic agent; Z88.8 Allergy status to other drugs, medicaments and biological substances; Z88.2 Allergy status to sulfonamides
CPT/HCPCS: 71046; 94640

== ENCOUNTER 2018-06-28 11:47 | Emergency (ER) | payer SELFPAY ==
[2018-06-28 11:59] VITALS: BP 125/65
--- NOTE | 2018-06-28 13:27 | Emergency Department Report ---
ED Female HPI - General Chief complaint: Urogenital-Female Stated complaint: VAGINAL DISCHARGE/ABD PAIN Time Seen by Provider: 06/28/18 13:20 Source: patient Mode of arrival: Ambulatory Limitations: No Limitations - History of Present Illness MD Complaint: vaginal discharge, dysuria, pelvic pain Location: suprapubic Severity: mild Quality: cramping Improves with: none Are you Now?: No - Related Data Previous Rx's Medication Instructions Recorded Last Taken Type LORazepam [Ativan] 0.5 mg PO BID PRN #20 tab 12/05/16 Unknown Rx Ondansetron [Zofran Odt] 4 mg PO TID PRN #25 tab.rapdis 12/05/16 Unknown Rx Promethazine [Phenergan TAB] 25 mg PO Q8HR PRN #25 tab 12/05/16 Unknown Rx Loperamide [Imodium] 2 mg PO Q2HR #15 capsule 12/05/17 Unknown Rx Mag Hydrox/Aluminum Hyd/Simeth 30 ml PO QID PRN #1 bottle 12/05/17 Unknown Rx [Maalox Advanced Suspension] Ondansetron [Zofran Odt] 4 mg PO Q8H PRN #20 tab.rapdis 12/05/17 Unknown Rx Fluconazole [Diflucan TAB] 150 mg PO ONCE #1 tablet 02/21/18 Unknown Rx HYDROcodone/APAP 5-325 [[place] 1 - 2 each PO Q6HR PRN #10 tablet 02/21/18 Unknown Rx 5/325] ALBUTEROL Inhaler(NF) [VENTOLIN 1 puff IH PRN #1 inha 05/19/18 Unknown Rx Inhaler(NF)] Dextromethorphan HBr [Tussin Cough] 15 mg PO TID 7 Days #1 bottle 05/19/18 Unknown Rx Ibuprofen [Motrin 800 MG tab] 800 mg PO Q8HR PRN #20 tablet 05/19/18 Unknown Rx predniSONE [Deltasone] 10 mg PO QDAY #4 tab 05/19/18 Unknown Rx ALBUTEROL Inhaler(NF) [VENTOLIN 2 puff IH Q4HR #1 inha 06/23/18 Unknown Rx Inhaler(NF)] Benzonatate [Tessalon Perles] 100 mg PO Q8HR PRN #20 capsule 06/23/18 Unknown Rx Hydrocodone/Chlorphen P-Stirex 115 ml PO Q12HR PRN #180 skip.er.12h 06/23/18 Unknown Rx [Tussionex Pennkinetic Susp] predniSONE [Deltasone] 20 mg PO QDAY #15 tab 06/23/18 Unknown Rx Allergies Allergy/AdvReac Type Severity Reaction Status Date / Time codeine Allergy Hives Verified 12/03/16 18:49 hydroxyzine HCl Allergy Shortness Verified 12/03/16 18:50 [From Vistaril] of Breath hydroxyzine pamoate Allergy Shortness Verified 12/03/16 18:50 [From Vistaril] of Breath methocarbamol [From Robaxin] Allergy Shortness Verified 12/03/16 18:50 of Breath sulfamethoxazole Allergy Hives Verified 12/03/16 18:50 [From Bactrim] trimethoprim [From Bactrim] Allergy Hives Verified 12/03/16 18:50 ED Review of Systems ROS: Stated complaint: VAGINAL DISCHARGE/ABD PAIN Other details as noted in HPI Comment: All other systems reviewed and negative Constitutional: denies: chills, fever Respiratory: denies: cough, orthopnea, shortness of breath, SOB with exertion, SOB at rest Cardiovascular: denies: chest pain, palpitations, dyspnea on exertion, orthopnea Gastrointestinal: denies: abdominal pain, nausea, vomiting, diarrhea, constipation, hematemesis Genitourinary: dysuria, discharge (WHITISH,THICK AND ITCHY) ED Past Medical Hx - Past Medical History Hx GERD: Yes Hx Psychiatric Treatment: Yes (anxiety,depression) Additional medical history: anemia, GERD - Surgical History Past Surgical History?: No - Social History Smoking Status: Current Every Day Smoker Substance Use Type: None - Medications Home Medications: Home Medications Medication Instructions Recorded Confirmed Last Taken Type LORazepam [Ativan] 0.5 mg PO BID PRN #20 tab 12/05/16 Unknown Rx Ondansetron [Zofran Odt] 4 mg PO TID PRN #25 tab.rapdis 12/05/16 Unknown Rx Promethazine [Phenergan TAB] 25 mg PO Q8HR PRN #25 tab 12/05/16 Unknown Rx Loperamide [Imodium] 2 mg PO Q2HR #15 capsule 12/05/17 Unknown Rx Mag Hydrox/Aluminum Hyd/Simeth 30 ml PO QID PRN #1 bottle 12/05/17 Unknown Rx [Maalox Advanced Suspension] Ondansetron [Zofran Odt] 4 mg PO Q8H PRN #20 tab.rapdis 12/05/17 Unknown Rx Fluconazole [Diflucan TAB] 150 mg PO ONCE #1 tablet 02/21/18 Unknown Rx HYDROcodone/APAP 5-325 [[place] 1 - 2 each PO Q6HR PRN #10 tablet 02/21/18 Unknown Rx 5/325] ALBUTEROL Inhaler(NF) [VENTOLIN 1 puff IH PRN #1 inha 05/19/18 Unknown Rx Inhaler(NF)] Dextromethorphan HBr [Tussin Cough] 15 mg PO TID 7 Days #1 bottle 05/19/18 Unknown Rx Ibuprofen [Motrin 800 MG tab] 800 mg PO Q8HR PRN #20 tablet 05/19/18 Unknown Rx predniSONE [Deltasone] 10 mg PO QDAY #4 tab 05/19/18 Unknown Rx ALBUTEROL Inhaler(NF) [VENTOLIN 2 puff IH Q4HR #1 inha 06/23/18 Unknown Rx Inhaler(NF)] Benzonatate [Tessalon Perles] 100 mg PO Q8HR PRN #20 capsule 06/23/18 Unknown Rx Hydrocodone/Chlorphen P-Stirex 115 ml PO Q12HR PRN #180 skip.er.12h 06/23/18 Unknown Rx [Tussionex Pennkinetic Susp] predniSONE [Deltasone] 20 mg PO QDAY #15 tab 06/23/18 Unknown Rx ED Physical Exam - General Limitations: No Limitations General appearance: alert, in no apparent distress - Head Head exam: Present: atraumatic, normocephalic, normal inspection - ENT ENT exam: Present: normal exam, normal orophraynx, mucous membranes moist - Neck Neck exam: Present: normal inspection, full ROM. Absent: tenderness, meningismus, lymphadenopathy, thyromegaly - Respiratory Respiratory exam: Present: normal lung sounds bilaterally - Cardiovascular Cardiovascular Exam: Present: regular rate, normal rhythm, normal heart sounds - GI/Abdominal GI/Abdominal exam: Present: soft, normal bowel sounds. Absent: distended, tenderness, guarding, rebound, rigid, organomegaly, mass, bruit, pulsatile mass, hernia - Extremities Exam Extremities exam: Present: normal inspection, full ROM, normal capillary refill. Absent: pedal edema, calf tenderness - Back Exam Back exam: Present: normal inspection, full ROM. Absent: tenderness, CVA tenderness (R), CVA tenderness (L), muscle spasm, paraspinal tenderness, vertebral tenderness - Neurological Exam Neurological exam: Present: alert, oriented X3, CN II-XII intact, normal gait, reflexes normal - Skin Skin exam: Present: warm, intact, normal color ED Course Vital Signs 06/28/18 11:57 Temperature 98.2 F Pulse Rate 89 Respiratory 16 Rate Blood Pressure 125/65 O2 Sat by Pulse 99 Oximetry Critical care attestation.: If time is entered above; I have spent that time in minutes in the direct care of this critically ill patient, excluding procedure time. ED Disposition Clinical Impression: Izzy vaginitis Disposition: DC-01 TO HOME OR SELFCARE Is pt being admited?: No Condition: Stable Instructions: Vulvovaginal Candidiasis (ED) Referrals: PRIMARY CARE, [Primary Care Provider] - 3-5 Days
[2018-06-28 14:39] LABS: Bacteria,Urine 1+ /HPF (Negative); Bilirubin,Urine NEG (Negative); Blood,Urine NEG (Negative); Color,Urine Yellow (Yellow); HCG Qualitative,Urine Negative (Negative); Mucus,Urine FEW /HPF; Protein,Urine <15 mg/dL mg/dL (Negative); Urobilinogen,Urine < 2.0 mg/dL (<2.0)
== END 2018-06-28 15:03 | disposition home or self-care (01) ==
LOC: ED 11:47
DX: B37.3 Candidiasis of vulva and vagina (principal); K21.9 Gastro-esophageal reflux disease without esophagitis; F32.9 Major depressive disorder, single episode, unspecified; F17.200 Nicotine dependence, unspecified, uncomplicated
CPT/HCPCS: 81001; 81025

== ENCOUNTER 2018-08-17 08:28 | Emergency (ER) | payer OTHER ==
[2018-08-17 08:35] VITALS: BP 121/85
[2018-08-17] MEDS ORDERED: DELTASONE PO ONE (08:54)
[2018-08-17] MEDS ORDERED: DUONEB *Not for PRN Use IH ONE (08:54)
--- NOTE | 2018-08-17 08:57 | Emergency Department Report ---
ED General Adult HPI - General Chief complaint: Upper Respiratory Infection Stated complaint: WHEEZING/SOB Time Seen by Provider: 08/17/18 08:41 Source: patient Mode of arrival: Ambulatory Limitations: No Limitations - History of Present Illness Initial comments: The patient presents unresponsive chief complaint of wheezing and shortness of breath 3 months. The patient states this started in mid May which was diagnosed with acute bronchitis which later turned into chronic bronchitis. The patient states prior to her original diagnosis she was a daily smoker but no longer smokes. Patient denies any chemical exposures. The patient does have a primary care physician a [facility] via [facility] but has not followed up with them since this has occurred. Patient denies any chest pain, abdominal pain, headache. -: Gradual Severity scale (0 -10): 0 Improves with: none Worsens with: none Associated Symptoms: denies other symptoms Treatments Prior to Arrival: none - Related Data Previous Rx's Medication Instructions Recorded Last Taken Type LORazepam [Ativan] 0.5 mg PO BID PRN #20 tab 12/05/16 Unknown Rx Ondansetron [Zofran Odt] 4 mg PO TID PRN #25 tab.rapdis 12/05/16 Unknown Rx Promethazine [Phenergan TAB] 25 mg PO Q8HR PRN #25 tab 12/05/16 Unknown Rx Loperamide [Imodium] 2 mg PO Q2HR #15 capsule 12/05/17 Unknown Rx Mag Hydrox/Aluminum Hyd/Simeth 30 ml PO QID PRN #1 bottle 12/05/17 Unknown Rx [Maalox Advanced Suspension] Ondansetron [Zofran Odt] 4 mg PO Q8H PRN #20 tab.rapdis 12/05/17 Unknown Rx Fluconazole [Diflucan TAB] 150 mg PO ONCE #1 tablet 02/21/18 Unknown Rx HYDROcodone/APAP 5-325 [[place] 1 - 2 each PO Q6HR PRN #10 tablet 02/21/18 Unknown Rx 5/325] ALBUTEROL Inhaler(NF) [VENTOLIN 1 puff IH PRN #1 inha 05/19/18 Unknown Rx Inhaler(NF)] Dextromethorphan HBr [Tussin Cough] 15 mg PO TID 7 Days #1 bottle 05/19/18 Unknown Rx Ibuprofen [Motrin 800 MG tab] 800 mg PO Q8HR PRN #20 tablet 05/19/18 Unknown Rx predniSONE [Deltasone] 10 mg PO QDAY #4 tab 05/19/18 Unknown Rx Benzonatate [Tessalon Perles] 100 mg PO Q8HR PRN #20 capsule 06/23/18 Unknown Rx Hydrocodone/Chlorphen P-Stirex 115 ml PO Q12HR PRN #180 skip.er.12h 06/23/18 Unknown Rx [Tussionex Pennkinetic Susp] Fluconazole [Diflucan TAB] 100 mg PO BID #2 tablet 06/28/18 Unknown Rx ALBUTEROL Inhaler(NF) [VENTOLIN 2 puff IH Q4HR #1 inha 07/26/18 Unknown Rx Inhaler(NF)] Azithromycin [Zithromax Z-MEREDITH] 250 mg PO DAILY #6 tablet 07/26/18 Unknown Rx Brompheniramine/Pseudoephed/Dm 10 ml PO Q4-6H PRN #200 syrup 07/26/18 Unknown Rx [Bromfed Dm Cough Syrup] Diclofenac Sodium 50 mg PO BID #20 tablet. 07/26/18 Unknown Rx predniSONE [Deltasone] 20 mg PO DAILY #15 tab 07/26/18 Unknown Rx Albuterol Sulfate [Proventil Hfa] 6.7 gm IH BID #1 hfa.aer.ad 08/17/18 Unknown Rx Allergies Allergy/AdvReac Type Severity Reaction Status Date / Time codeine Allergy Hives Verified 12/03/16 18:49 hydroxyzine HCl Allergy Shortness Verified 12/03/16 18:50 [From Vistaril] of Breath hydroxyzine pamoate Allergy Shortness Verified 12/03/16 18:50 [From Vistaril] of Breath methocarbamol [From Robaxin] Allergy Shortness Verified 12/03/16 18:50 of Breath sulfamethoxazole Allergy Hives Verified 12/03/16 18:50 [From Bactrim] trimethoprim [From Bactrim] Allergy Hives Verified 12/03/16 18:50 ED Review of Systems ROS: Stated complaint: WHEEZING/SOB Other details as noted in HPI Comment: All other systems reviewed and negative Constitutional: denies: chills, fever Eyes: denies: eye pain, eye discharge, vision change ENT: denies: ear pain, throat pain Respiratory: cough, wheezing. denies: shortness of breath Cardiovascular: denies: chest pain, palpitations Endocrine: no symptoms reported Gastrointestinal: denies: abdominal pain, nausea, diarrhea Genitourinary: denies: urgency, dysuria, discharge Musculoskeletal: denies: back pain, joint swelling, arthralgia Skin: denies: rash, lesions Neurological: denies: headache, weakness, paresthesias Psychiatric: denies: anxiety, depression Hematological/Lymphatic: denies: easy bleeding, easy bruising ED Past Medical Hx - Past Medical History Previous Medical History?: Yes Hx GERD: Yes Hx Psychiatric Treatment: Yes (anxiety,depression) Additional medical history: anemia, GERD - Surgical History Past Surgical History?: No - Social History Smoking Status: Former Smoker Substance Use Type: Alcohol - Medications Home Medications: Home Medications Medication Instructions Recorded Confirmed Last Taken Type LORazepam [Ativan] 0.5 mg PO BID PRN #20 tab 12/05/16 Unknown Rx Ondansetron [Zofran Odt] 4 mg PO TID PRN #25 tab.rapdis 12/05/16 Unknown Rx Promethazine [Phenergan TAB] 25 mg PO Q8HR PRN #25 tab 12/05/16 Unknown Rx Loperamide [Imodium] 2 mg PO Q2HR #15 capsule 12/05/17 Unknown Rx Mag Hydrox/Aluminum Hyd/Simeth 30 ml PO QID PRN #1 bottle 12/05/17 Unknown Rx [Maalox Advanced Suspension] Ondansetron [Zofran Odt] 4 mg PO Q8H PRN #20 tab.rapdis 12/05/17 Unknown Rx Fluconazole [Diflucan TAB] 150 mg PO ONCE #1 tablet 02/21/18 Unknown Rx HYDROcodone/APAP 5-325 [[place] 1 - 2 each PO Q6HR PRN #10 tablet 02/21/18 Unknown Rx 5/325] ALBUTEROL Inhaler(NF) [VENTOLIN 1 puff IH PRN #1 inha 05/19/18 Unknown Rx Inhaler(NF)] Dextromethorphan HBr [Tussin Cough] 15 mg PO TID 7 Days #1 bottle 05/19/18 Unknown Rx Ibuprofen [Motrin 800 MG tab] 800 mg PO Q8HR PRN #20 tablet 05/19/18 Unknown Rx predniSONE [Deltasone] 10 mg PO QDAY #4 tab 05/19/18 Unknown Rx Benzonatate [Tessalon Perles] 100 mg PO Q8HR PRN #20 capsule 06/23/18 Unknown Rx Hydrocodone/Chlorphen P-Stirex 115 ml PO Q12HR PRN #180 skip.er.12h 06/23/18 Unknown Rx [Tussionex Pennkinetic Susp] Fluconazole [Diflucan TAB] 100 mg PO BID #2 tablet 06/28/18 Unknown Rx ALBUTEROL Inhaler(NF) [VENTOLIN 2 puff IH Q4HR #1 inha 07/26/18 Unknown Rx Inhaler(NF)] Azithromycin [Zithromax Z-MEREDITH] 250 mg PO DAILY #6 tablet 07/26/18 Unknown Rx Brompheniramine/Pseudoephed/Dm 10 ml PO Q4-6H PRN #200 syrup 07/26/18 Unknown Rx [Bromfed Dm Cough Syrup] Diclofenac Sodium 50 mg PO BID #20 tablet.dr 07/26/18 Unknown Rx predniSONE [Deltasone] 20 mg PO DAILY #15 tab 07/26/18 Unknown Rx Albuterol Sulfate [Proventil Hfa] 6.7 gm IH BID #1 hfa.aer.ad 08/17/18 Unknown Rx ED Physical Exam - General Limitations: No Limitations General appearance: alert, in no apparent distress - Head Head exam: Present: atraumatic, normocephalic - Eye Eye exam: Present: normal appearance, PERRL, EOMI - ENT ENT exam: Present: mucous membranes moist - Neck Neck exam: Present: normal inspection - Respiratory Respiratory exam: Present: normal lung sounds bilaterally, wheezes (mild expi ratory wheezing). Absent: respiratory distress, rales, rhonchi - Cardiovascular Cardiovascular Exam: Present: regular rate, normal rhythm. Absent: systolic mur mur, diastolic murmur, rubs, gallop - GI/Abdominal GI/Abdominal exam: Present: soft, normal bowel sounds. Absent: distended, tenderness - Extremities Exam Extremities exam: Present: normal inspection - Back Exam Back exam: Present: normal inspection - Neurological Exam Neurological exam: Present: alert, oriented X3, CN II-XII intact. Absent: motor sensory deficit - Psychiatric Psychiatric exam: Present: normal affect, normal mood - Skin Skin exam: Present: warm, dry, intact, normal color. Absent: rash ED Course Vital Signs 08/17/18 08:33 Temperature 98.1 F Pulse Rate 105 H Respiratory 20 Rate Blood Pressure 121/85 O2 Sat by Pulse 98 Oximetry ED Medical Decision Making - Medical Decision Making Discussed with the patient the need to follow with her primary care physician at [place]. We discussed with wheezing 3 months the patient should be seen by her primary care physician and possibly have pulmonary studies done. Critical care attestation.: If time is entered above; I have spent that time in minutes in the direct care of this critically ill patient, excluding procedure time. ED Disposition Clinical Impression: Shortness of breath Disposition: DC-01 TO HOME OR SELFCARE Is pt being admited?: No Does the pt Need Aspirin: No Condition: Stable Instructions: Dyspnea (ED) Additional Instructions: return if worse As discussed please follow up with your primary care physician [facility] Prescriptions: Albuterol Sulfate [Proventil Hfa] 6.7 gm IH BID #1 hfa.aer.ad Referrals: SARITA ROB MD [Primary Care Provider] - 3-5 Days Time of Disposition: 09:49
--- NOTE | 2018-08-17 09:15 | XRay Report ---
ROUTINE CHEST, TWO VIEWS: HISTORY: Wheezing. The trachea, heart, mediastinal contour, lung huffman and bony thorax are unremarkable. No significant change since 07/26/18. IMPRESSION: Unremarkable chest x-ray.
== END 2018-08-17 10:36 | disposition home or self-care (01) ==
LOC: ED 08:28
DX: R06.02 Shortness of breath (principal); R06.2 Wheezing; K21.9 Gastro-esophageal reflux disease without esophagitis; F32.9 Major depressive disorder, single episode, unspecified; F41.9 Anxiety disorder, unspecified; Z87.891 Personal history of nicotine dependence
CPT/HCPCS: 71046; 94640; 99283; J7512

== ENCOUNTER 2021-01-02 18:28 | Emergency (ER) | payer OTHER ==
[2021-01-02] MEDS ORDERED: predniSONE 50 MG TAB PO STA (20:22)
[2021-01-02] MEDS ORDERED: ALBUTEROL 2.5 MG/3 ML NEBU IH ONE (20:22)
--- NOTE | 2021-01-02 20:27 | Emergency Department Report ---
ED Asthma HPI - General Chief Complaint: Upper Respiratory Infection Stated Complaint: VOMITINB COUGH WHEEZING Time Seen by Provider: 01/02/21 20:20 Source: patient Mode of arrival: Ambulatory Limitations: No Limitations - History of Present Illness Initial Comments: 35-year-old [place]ron[place] female with a known history of asthma takes albuterol and Advair at home presents emerged department complaining of a 10-day history of coughing and and congestion with wheezing with yellow-green mucus discharge and coughing spells that resolves and posttussive vomiting. Ports no fever, chills, sweats, palpitations no no fever, no abdominal pain no rashes no odynophagia or dysphagia. No foreign travel no known contact with coronavirus MD Complaint: shortness of breath, wheezing -: Gradual, days(s) (10) Severity: mild Context: none known Associated Symptoms: none Treatments Prior to Arrival: inhaled bronchodilator, inhaled steroid - Related Data Previous Rx's Medication Instructions Recorded Last Taken Type LORazepam [Ativan] 0.5 mg PO BID PRN #20 tab 12/05/16 Unknown Rx Ondansetron [Zofran Odt] 4 mg PO TID PRN #25 tab.rapdis 12/05/16 Unknown Rx Promethazine [Phenergan TAB] 25 mg PO Q8HR PRN #25 tab 12/05/16 Unknown Rx Loperamide [Imodium] 2 mg PO Q2HR #15 capsule 12/05/17 Unknown Rx Mag Hydrox/Aluminum Hyd/Simeth 30 ml PO QID PRN #1 bottle 12/05/17 Unknown Rx [Maalox Advanced Suspension] Ondansetron [Zofran Odt] 4 mg PO Q8H PRN #20 tab.rapdis 12/05/17 Unknown Rx Fluconazole (Nf) [Diflucan TAB] 150 mg PO ONCE #1 tablet 02/21/18 Unknown Rx HYDROcodone/APAP 5-325 [[place] 1 - 2 each PO Q6HR PRN #10 tablet 02/21/18 Unknown Rx 5/325] ALBUTEROL Inhaler(NF) [VENTOLIN 1 puff IH PRN #1 inha 05/19/18 Unknown Rx Inhaler(NF)] Dextromethorphan HBr [Tussin Cough] 15 mg PO TID 7 Days #1 bottle 05/19/18 Unknown Rx Ibuprofen [Motrin 800 MG tab] 800 mg PO Q8HR PRN #20 tablet 05/19/18 Unknown Rx predniSONE 10 mg PO QDAY #4 tab 05/19/18 Unknown Rx Benzonatate [Tessalon Perles] 100 mg PO Q8HR PRN #20 capsule 06/23/18 Unknown Rx Hydrocodone/Chlorphen P-Stirex 115 ml PO Q12HR PRN #180 skip.er.12h 06/23/18 Unknown Rx [Tussionex Pennkinetic Susp] Fluconazole [Diflucan TAB] 100 mg PO BID #2 tablet 06/28/18 Unknown Rx ALBUTEROL Inhaler(NF) [VENTOLIN 2 puff IH Q4HR #1 inha 07/26/18 Unknown Rx Inhaler(NF)] Azithromycin [Zithromax Z-MEREDITH] 250 mg PO DAILY #6 tablet 07/26/18 Unknown Rx Brompheniramine/Pseudoephed/Dm 10 ml PO Q4-6H PRN #200 syrup 07/26/18 Unknown Rx [Bromfed Dm 2-30-10 mg/5 ml Syr] Diclofenac Sodium 50 mg PO BID #20 tablet.dr 07/26/18 Unknown Rx predniSONE [Deltasone] 20 mg PO DAILY #15 tab 07/26/18 Unknown Rx Albuterol Sulfate [Proventil Hfa] 6.7 gm IH BID #1 hfa.aer.ad 08/17/18 Unknown Rx predniSONE [Deltasone] 20 mg PO DAILY #15 tablet 08/17/18 Unknown Rx Azithromycin [Zithromax] 500 mg PO QDAY #3 tablet 01/02/21 Unknown Rx Benzonatate [Tessalon Perles] 100 mg PO Q8HR #30 capsule 01/02/21 Unknown Rx Montelukast [Singulair] 10 mg PO QPM #14 tablet 01/02/21 Unknown Rx predniSONE [Deltasone] 50 mg PO QDAY #5 tab 01/02/21 Unknown Rx Allergies Allergy/AdvReac Type Severity Reaction Status Date / Time codeine Allergy Hives Verified 12/03/16 18:49 hydroxyzine HCl Allergy Shortness Verified 12/03/16 18:50 [From Vistaril] of Breath hydroxyzine pamoate Allergy Shortness Verified 12/03/16 18:50 [From Vistaril] of Breath methocarbamol [From Robaxin] Allergy Shortness Verified 12/03/16 18:50 of Breath sulfamethoxazole Allergy Hives Verified 12/03/16 18:50 [From Bactrim] trimethoprim [From Bactrim] Allergy Hives Verified 12/03/16 18:50 ED Review of Systems ROS: Stated complaint: VOMITINB COUGH WHEEZING Other details as noted in HPI Comment: All other systems reviewed and negative ED Past Medical Hx - Past Medical History Hx GERD: Yes Hx Psychiatric Treatment: Yes (anxiety,depression) Hx Asthma: Yes Additional medical history: anemia, GERD - Surgical History Past Surgical History?: No - Social History Smoking Status: Former Smoker Substance Use Type: Alcohol - Medications Home Medications: Home Medications Medication Instructions Recorded Confirmed Last Taken Type LORazepam [Ativan] 0.5 mg PO BID PRN #20 tab 12/05/16 Unknown Rx Ondansetron [Zofran Odt] 4 mg PO TID PRN #25 tab.rapdis 12/05/16 Unknown Rx Promethazine [Phenergan TAB] 25 mg PO Q8HR PRN #25 tab 12/05/16 Unknown Rx Loperamide [Imodium] 2 mg PO Q2HR #15 capsule 12/05/17 Unknown Rx Mag Hydrox/Aluminum Hyd/Simeth 30 ml PO QID PRN #1 bottle 12/05/17 Unknown Rx [Maalox Advanced Suspension] Ondansetron [Zofran Odt] 4 mg PO Q8H PRN #20 tab.rapdis 12/05/17 Unknown Rx Fluconazole (Nf) [Diflucan TAB] 150 mg PO ONCE #1 tablet 02/21/18 Unknown Rx HYDROcodone/APAP 5-325 [[place] 1 - 2 each PO Q6HR PRN #10 tablet 02/21/18 Unknown Rx 5/325] ALBUTEROL Inhaler(NF) [VENTOLIN 1 puff IH PRN #1 inha 05/19/18 Unknown Rx Inhaler(NF)] Dextromethorphan HBr [Tussin Cough] 15 mg PO TID 7 Days #1 bottle 05/19/18 Unknown Rx Ibuprofen [Motrin 800 MG tab] 800 mg PO Q8HR PRN #20 tablet 05/19/18 Unknown Rx predniSONE 10 mg PO QDAY #4 tab 05/19/18 Unknown Rx Benzonatate [Tessalon Perles] 100 mg PO Q8HR PRN #20 capsule 06/23/18 Unknown Rx Hydrocodone/Chlorphen P-Stirex 115 ml PO Q12HR PRN #180 skip.er.12h 06/23/18 Unknown Rx [Tussionex Pennkinetic Susp] Fluconazole [Diflucan TAB] 100 mg PO BID #2 tablet 06/28/18 Unknown Rx ALBUTEROL Inhaler(NF) [VENTOLIN 2 puff IH Q4HR #1 inha 07/26/18 Unknown Rx Inhaler(NF)] Azithromycin [Zithromax Z-MEREDITH] 250 mg PO DAILY #6 tablet 07/26/18 Unknown Rx Brompheniramine/Pseudoephed/Dm 10 ml PO Q4-6H PRN #200 syrup 07/26/18 Unknown Rx [Bromfed Dm 2-30-10 mg/5 ml Syr] Diclofenac Sodium 50 mg PO BID #20 tablet.dr 07/26/18 Unknown Rx predniSONE [Deltasone] 20 mg PO DAILY #15 tab 07/26/18 Unknown Rx Albuterol Sulfate [Proventil Hfa] 6.7 gm IH BID #1 hfa.aer.ad 08/17/18 Unknown Rx predniSONE [Deltasone] 20 mg PO DAILY #15 tablet 08/17/18 Unknown Rx Azithromycin [Zithromax] 500 mg PO QDAY #3 tablet 01/02/21 Unknown Rx Benzonatate [Tessalon Perles] 100 mg PO Q8HR #30 capsule 01/02/21 Unknown Rx Montelukast [Singulair] 10 mg PO QPM #14 tablet 01/02/21 Unknown Rx predniSONE [Deltasone] 50 mg PO QDAY #5 tab 01/02/21 Unknown Rx ED Physical Exam - General Limitations: No Limitations General appearance: alert, in no apparent distress - Head Head exam: Present: atraumatic, normocephalic - Eye Eye exam: Present: normal appearance, PERRL Pupils: Present: normal accommodation - ENT ENT exam: Present: normal exam, normal orophraynx, mucous membranes moist, TM's normal bilaterally - Neck Neck exam: Present: normal inspection, full ROM - Respiratory Respiratory exam: Present: normal lung sounds bilaterally. Absent: respiratory distress, rales, rhonchi - Cardiovascular Cardiovascular Exam: Present: regular rate, normal rhythm. Absent: systolic murmur, diastolic murmur, rubs, gallop - GI/Abdominal GI/Abdominal exam: Present: soft, normal bowel sounds - Extremities Exam Extremities exam: Present: normal inspection - Back Exam Back exam: Present: normal inspection - Neurological Exam Neurological exam: Present: alert, oriented X3 - Psychiatric Psychiatric exam: Present: normal affect, normal mood - Skin Skin exam: Present: warm, dry, intact, normal color. Absent: rash ED Course Vital Signs 01/02/21 18:49 Temperature 98.7 F Pulse Rate 86 Respiratory 20 Rate Blood Pressure 136/77 O2 Sat by Pulse 100 Oximetry ED Medical Decision Making - Radiology Data Radiology results: report reviewed X-ray shows no acute process - Medical Decision Making No altered mental status, saddle respirations, belly breathing or other signs of impending ventilatory failure. No intubations or recent admissions to the hospital for asthma. Unlikely pneumonia, CHF, COPD, GERD Workup Review include a chest x-ray which was normal she also received steroids and albuterol Therapies: Prednisone 50 mg PO. Albuterol nebulizer Reassessment: Patient improved with albuterol and ipratropium in less than 3 hours. Patient is is ambulatory with no distress no desaturate Disposition: Discharge home with return precautions. Advised to follow up with primary care physician within next 24-48 hours. Aside from this acute exacerbation patient has been well controlled on baseline home regimen. Rx short steroid course, albuterol, Singulair, Flovent Critical care attestation.: If time is entered above; I have spent that time in minutes in the direct care of this critically ill patient, excluding procedure time. ED Disposition Clinical Impression: Asthma, Cough Disposition: DC- TO HOME OR SELFCARE Is pt being admited?: No Does the pt Need Aspirin: No Condition: Stable Instructions: Asthma (ED), Asthma, Adult, Cool Mist Vaporizer, Cough, Adult, [id number] Prescriptions: predniSONE [Deltasone] 50 mg PO QDAY #5 tab Montelukast [Singulair] 10 mg PO QPM #14 tablet Benzonatate [Tessalon Perles] 100 mg PO Q8HR #30 capsule Azithromycin [Zithromax] 500 mg PO QDAY #3 tablet Referrals: PRIMARY CARE, [Primary Care Provider] - 3-5 Days [facility] [Provider Group] - 3-5 Days
--- NOTE | 2021-01-02 21:12 | XRay Report ---
CHEST 2 VIEWS INDICATION / CLINICAL INFORMATION: wheeze and couh. COMPARISON: Chest radiograph 08/17/2018 FINDINGS: SUPPORT DEVICES: None. HEART / MEDIASTINUM: No significant abnormality. LUNGS / PLEURA: No significant pulmonary or pleural abnormality. No pneumothorax. ADDITIONAL FINDINGS: No significant additional findings. IMPRESSION: 1. No acute findings. Signer Name: Manoj Obrien MD Signed: 01/02/2021 9:08 PM Workstation Name: [id number]
[2021-01-03 01:43] VITALS: BP 147/83
== END 2021-01-02 23:30 | disposition home or self-care (01) ==
LOC: ED 18:28
DX: J45.909 Unspecified asthma, uncomplicated (principal); R05 Cough; K21.9 Gastro-esophageal reflux disease without esophagitis; F41.9 Anxiety disorder, unspecified; Z87.891 Personal history of nicotine dependence; Z79.1 Long term (current) use of non-steroidal anti-inflammatories (NSAID); Z79.2 Long term (current) use of antibiotics; Z79.899 Other long term (current) drug therapy; Z88.8 Allergy status to other drugs, medicaments and biological substances
CPT/HCPCS: 71046; 94640; 99283; J7512

== ENCOUNTER 2021-02-18 18:38 | Emergency (ER) | payer SELFPAY ==
[2021-02-18 19:06] VITALS: BP 135/78
--- NOTE | 2021-02-18 19:19 | Emergency Department Report ---
ED Asthma HPI - General Chief Complaint: Dyspnea/Respdistress Stated Complaint: ASTHMA,SINUS INFECTION PUI?: No Time Seen by Provider: 02/18/21 19:13 Source: patient Mode of arrival: Ambulatory Limitations: No Limitations - History of Present Illness Initial Comments: Chief complaint: Asthma sinus infection HPI: This is a 35-year-old female history of asthma, seasonal allergies, anemia, GERD, anxiety, depression who presents with shortness of breath nasal congestion for 6 days. She had a teledoc appointment. She has finished prednisone 40 mg for the last 3 days. She is in the middle of completing azithromycin Z-Meredith. She thinks that missing her Advair for 2 days likely cause the worsening shortness of breath. She also takes Zyrtec. She denies fever, stomach pain. She has productive cough with yellow sputum. She has nasal congestion. She has albuterol at home. She had a recent COVID-19 test which was negative. MD Complaint: "asthma attack", shortness of breath -: Gradual, days(s) (6 days) Severity: mild Context: ran out of meds (Ran out of Advair, started new prescription recently.) Associated Symptoms: productive cough - Related Data Previous Rx's Medication Instructions Recorded Last Taken Type LORazepam [Ativan] 0.5 mg PO BID PRN #20 tab 12/05/16 Unknown Rx Ondansetron [Zofran Odt] 4 mg PO TID PRN #25 tab.rapdis 12/05/16 Unknown Rx Promethazine [Phenergan TAB] 25 mg PO Q8HR PRN #25 tab 12/05/16 Unknown Rx Loperamide [Imodium] 2 mg PO Q2HR #15 capsule 12/05/17 Unknown Rx Mag Hydrox/Aluminum Hyd/Simeth 30 ml PO QID PRN #1 bottle 12/05/17 Unknown Rx [Maalox Advanced Suspension] Ondansetron [Zofran Odt] 4 mg PO Q8H PRN #20 tab.rapdis 12/05/17 Unknown Rx Fluconazole (Nf) [Diflucan TAB] 150 mg PO ONCE #1 tablet 02/21/18 Unknown Rx HYDROcodone/APAP 5-325 [[place] 1 - 2 each PO Q6HR PRN #10 tablet 02/21/18 Unknown Rx 5/325] ALBUTEROL Inhaler(NF) [VENTOLIN 1 puff IH PRN #1 inha 05/19/18 Unknown Rx Inhaler(NF)] Dextromethorphan HBr [Tussin Cough] 15 mg PO TID 7 Days #1 bottle 05/19/18 Unknown Rx Ibuprofen [Motrin 800 MG tab] 800 mg PO Q8HR PRN #20 tablet 05/19/18 Unknown Rx predniSONE 10 mg PO QDAY #4 tab 05/19/18 Unknown Rx Benzonatate [Tessalon Perles] 100 mg PO Q8HR PRN #20 capsule 06/23/18 Unknown Rx Hydrocodone/Chlorphen P-Stirex 115 ml PO Q12HR PRN #180 skip.er.12h 06/23/18 Unknown Rx [Tussionex Pennkinetic Susp] Fluconazole [Diflucan TAB] 100 mg PO BID #2 tablet 06/28/18 Unknown Rx ALBUTEROL Inhaler(NF) [VENTOLIN 2 puff IH Q4HR #1 inha 07/26/18 Unknown Rx Inhaler(NF)] Azithromycin [Zithromax Z-MEREDITH] 250 mg PO DAILY #6 tablet 07/26/18 Unknown Rx Brompheniramine/Pseudoephed/Dm 10 ml PO Q4-6H PRN #200 syrup 07/26/18 Unknown Rx [Bromfed Dm 2-30-10 mg/5 ml Syr] Diclofenac Sodium 50 mg PO BID #20 tablet.dr 07/26/18 Unknown Rx predniSONE [Deltasone] 20 mg PO DAILY #15 tab 07/26/18 Unknown Rx Albuterol Sulfate [Proventil Hfa] 6.7 gm IH BID #1 hfa.aer.ad 08/17/18 Unknown Rx predniSONE [Deltasone] 20 mg PO DAILY #15 tablet 08/17/18 Unknown Rx Azithromycin [Zithromax] 500 mg PO QDAY #3 tablet 01/02/21 Unknown Rx Benzonatate [Tessalon Perles] 100 mg PO Q8HR #30 capsule 01/02/21 Unknown Rx Montelukast [Singulair] 10 mg PO QPM #14 tablet 01/02/21 Unknown Rx predniSONE [Deltasone] 50 mg PO QDAY #5 tab 01/02/21 Unknown Rx Prednisone [predniSONE 10 mg 10 mg PO .TAPER #1 tab.ds.pk 02/18/21 Unknown Rx (6-Day Pack, 21 Tabs)] Allergies Allergy/AdvReac Type Severity Reaction Status Date / Time codeine Allergy Hives Verified 12/03/16 18:49 hydroxyzine HCl Allergy Shortness Verified 12/03/16 18:50 [From Vistaril] of Breath hydroxyzine pamoate Allergy Shortness Verified 12/03/16 18:50 [From Vistaril] of Breath methocarbamol [From Robaxin] Allergy Shortness Verified 12/03/16 18:50 of Breath sulfamethoxazole Allergy Hives Verified 12/03/16 18:50 [From Bactrim] trimethoprim [From Bactrim] Allergy Hives Verified 12/03/16 18:50 ED Review of Systems ROS: Stated complaint: ASTHMA,SINUS INFECTION Other details as noted in HPI Comment: All other systems reviewed and negative Constitutional: denies: fever, malaise ENT: congestion Respiratory: cough, shortness of breath Cardiovascular: denies: chest pain Gastrointestinal: denies: abdominal pain, nausea, vomiting ED Past Medical Hx - Past Medical History Previous Medical History?: Yes Hx GERD: Yes Hx Psychiatric Treatment: Yes (anxiety,depression) Hx Asthma: Yes Additional medical history: anemia, GERD - Surgical History Past Surgical History?: No - Social History Smoking Status: Former Smoker Substance Use Type: Alcohol - Medications Home Medications: Home Medications Medication Instructions Recorded Confirmed Last Taken Type LORazepam [Ativan] 0.5 mg PO BID PRN #20 tab 12/05/16 Unknown Rx Ondansetron [Zofran Odt] 4 mg PO TID PRN #25 tab.rapdis 12/05/16 Unknown Rx Promethazine [Phenergan TAB] 25 mg PO Q8HR PRN #25 tab 12/05/16 Unknown Rx Loperamide [Imodium] 2 mg PO Q2HR #15 capsule 12/05/17 Unknown Rx Mag Hydrox/Aluminum Hyd/Simeth 30 ml PO QID PRN #1 bottle 12/05/17 Unknown Rx [Maalox Advanced Suspension] Ondansetron [Zofran Odt] 4 mg PO Q8H PRN #20 tab.rapdis 12/05/17 Unknown Rx Fluconazole (Nf) [Diflucan TAB] 150 mg PO ONCE #1 tablet 02/21/18 Unknown Rx HYDROcodone/APAP 5-325 [[place] 1 - 2 each PO Q6HR PRN #10 tablet 02/21/18 Unknown Rx 5/325] ALBUTEROL Inhaler(NF) [VENTOLIN 1 puff IH PRN #1 inha 05/19/18 Unknown Rx Inhaler(NF)] Dextromethorphan HBr [Tussin Cough] 15 mg PO TID 7 Days #1 bottle 05/19/18 Unknown Rx Ibuprofen [Motrin 800 MG tab] 800 mg PO Q8HR PRN #20 tablet 05/19/18 Unknown Rx predniSONE 10 mg PO QDAY #4 tab 05/19/18 Unknown Rx Benzonatate [Tessalon Perles] 100 mg PO Q8HR PRN #20 capsule 06/23/18 Unknown Rx Hydrocodone/Chlorphen P-Stirex 115 ml PO Q12HR PRN #180 skip.er.12h 06/23/18 Unknown Rx [Tussionex Pennkinetic Susp] Fluconazole [Diflucan TAB] 100 mg PO BID #2 tablet 06/28/18 Unknown Rx ALBUTEROL Inhaler(NF) [VENTOLIN 2 puff IH Q4HR #1 inha 07/26/18 Unknown Rx Inhaler(NF)] Azithromycin [Zithromax Z-MEREDITH] 250 mg PO DAILY #6 tablet 07/26/18 Unknown Rx Brompheniramine/Pseudoephed/Dm 10 ml PO Q4-6H PRN #200 syrup 07/26/18 Unknown Rx [Bromfed Dm 2-30-10 mg/5 ml Syr] Diclofenac Sodium 50 mg PO BID #20 tablet. 07/26/18 Unknown Rx predniSONE [Deltasone] 20 mg PO DAILY #15 tab 07/26/18 Unknown Rx Albuterol Sulfate [Proventil Hfa] 6.7 gm IH BID #1 hfa.aer.ad 08/17/18 Unknown Rx predniSONE [Deltasone] 20 mg PO DAILY #15 tablet 08/17/18 Unknown Rx Azithromycin [Zithromax] 500 mg PO QDAY #3 tablet 01/02/21 Unknown Rx Benzonatate [Tessalon Perles] 100 mg PO Q8HR #30 capsule 01/02/21 Unknown Rx Montelukast [Singulair] 10 mg PO QPM #14 tablet 01/02/21 Unknown Rx predniSONE [Deltasone] 50 mg PO QDAY #5 tab 01/02/21 Unknown Rx Prednisone [predniSONE 10 mg 10 mg PO .TAPER #1 tab.ds.pk 02/18/21 Unknown Rx (6-Day Pack, 21 Tabs)] ED Physical Exam - General Limitations: No Limitations General appearance: alert, in no apparent distress - Head Head exam: Present: atraumatic, normocephalic - Eye Eye exam: Present: normal appearance - ENT ENT exam: Present: mucous membranes moist - Neck Neck exam: Present: normal inspection, full ROM - Respiratory Respiratory exam: Present: normal lung sounds bilaterally. Absent: respiratory distress, wheezes, rales, rhonchi - Cardiovascular Cardiovascular Exam: Present: regular rate, normal rhythm, normal heart sounds. Absent: systolic murmur, diastolic murmur, rubs, gallop - GI/Abdominal GI/Abdominal exam: Present: soft, normal bowel sounds. Absent: distended, tenderness, guarding, rebound - Back Exam Back exam: Present: normal inspection - Neurological Exam Neurological exam: Present: alert, oriented X3 - Psychiatric Psychiatric exam: Present: normal affect, normal mood - Skin Skin exam: Present: warm, dry, intact, normal color. Absent: rash ED Course Vital Signs 02/18/21 19:05 Temperature 98.5 F Pulse Rate 104 H Respiratory 18 Rate Blood Pressure 135/78 O2 Sat by Pulse 100 Oximetry ED Medical Decision Making - Medical Decision Making History of asthma, seasonal allergies: No evidence of acute exacerbation. Patient has clear breath sounds. I have prescribed prednisone taper. Encouraged consistent use of Advair. Patient has received appropriate care with prednisone burst therapy and azithromycin. Critical care attestation.: If time is entered above; I have spent that time in minutes in the direct care of this critically ill patient, excluding procedure time. ED Disposition Clinical Impression: Asthma, Allergic rhinitis, Acute sinusitis Disposition: HOME / SELF CARE / HOMELESS Is pt being admited?: No Does the pt Need Aspirin: No Condition: Stable Instructions: Asthma (ED), Asthma, Adult, Sinusitis, Adult, [id number], Allergic Rhinitis, Adult, [id number] Prescriptions: Prednisone [predniSONE 10 mg (6-Day Pack, 21 Tabs)] 10 mg PO .TAPER #1 tab.ds.pk Referrals: KYLE CALDERA MD [Staff Physician] - 3-5 Days
== END 2021-02-18 19:20 | disposition home or self-care (01) ==
LOC: ED 18:38
DX: J45.909 Unspecified asthma, uncomplicated (principal); J01.90 Acute sinusitis, unspecified; K21.9 Gastro-esophageal reflux disease without esophagitis; F41.9 Anxiety disorder, unspecified; F32.9 Major depressive disorder, single episode, unspecified; D64.9 Anemia, unspecified; Z98.890 Other specified postprocedural states; Z79.899 Other long term (current) drug therapy; Z88.6 Allergy status to analgesic agent; Z88.8 Allergy status to other drugs, medicaments and biological substances
CPT/HCPCS: 99281

== ENCOUNTER 2021-04-07 12:06 | Emergency (ER) | payer OTHER ==
[2021-04-07] MEDS ORDERED: SODIUM CHLORIDE 0.9% 1000 ML 1,000 ML IV ONE (12:39)
[2021-04-07] MEDS ORDERED: ONDANSETRON 4 MG/2 ML INJ IV ONE (12:39)
[2021-04-07] MEDS ORDERED: ACETAMINOPHEN 500 MG TAB PO ONE (12:41)
--- NOTE | 2021-04-07 12:42 | Emergency Department Report ---
HPI - General Chief Complaint: Upper Respiratory Infection Time Seen by Provider: 04/07/21 12:24 - HPI HPI: 35-year-old -[place]ub[place] female presents to the emergency department with a complaint of nausea with vomiting, diarrhea, generalized body aches, fever, mixed dry and productive cough, and being Covid positive. Patient tested positive yesterday at a local pharmacy. She had been having the symptoms for the past 2 to 3 days. At first the patient thought that she was starting to have an asthma exacerbation, but then began having the nausea/vomiting/diarrhea and the fever. The patient says that she has been taking Tylenol without much relief of her fever or body aches. She has a past medical history of asthma. No recent travel or sick contacts at home. ED Past Medical Hx - Past Medical History Previous Medical History?: Yes Hx GERD: Yes Hx Psychiatric Treatment: Yes (anxiety,depression) Hx Asthma: Yes Additional medical history: anemia, GERD - Surgical History Past Surgical History?: No - Social History Smoking Status: Former Smoker Substance Use Type: Alcohol - Medications Home Medications: Home Medications Medication Instructions Recorded Confirmed Last Taken Type LORazepam [Ativan] 0.5 mg PO BID PRN #20 tab 12/05/16 Unknown Rx Ondansetron [Zofran Odt] 4 mg PO TID PRN #25 tab.rapdis 12/05/16 Unknown Rx Promethazine [Phenergan TAB] 25 mg PO Q8HR PRN #25 tab 12/05/16 Unknown Rx Loperamide [Imodium] 2 mg PO Q2HR #15 capsule 12/05/17 Unknown Rx Mag Hydrox/Aluminum Hyd/Simeth 30 ml PO QID PRN #1 bottle 12/05/17 Unknown Rx [Maalox Advanced Suspension] Ondansetron [Zofran Odt] 4 mg PO Q8H PRN #20 tab.rapdis 12/05/17 Unknown Rx Fluconazole (Nf) [Diflucan TAB] 150 mg PO ONCE #1 tablet 02/21/18 Unknown Rx HYDROcodone/APAP 5-325 [[place] 1 - 2 each PO Q6HR PRN #10 tablet 02/21/18 Unknown Rx 5/325] ALBUTEROL Inhaler(NF) [VENTOLIN 1 puff IH PRN #1 inha 05/19/18 Unknown Rx Inhaler(NF)] Dextromethorphan HBr [Tussin Cough] 15 mg PO TID 7 Days #1 bottle 05/19/18 Unknown Rx Ibuprofen [Motrin 800 MG tab] 800 mg PO Q8HR PRN #20 tablet 05/19/18 Unknown Rx predniSONE 10 mg PO QDAY #4 tab 05/19/18 Unknown Rx Benzonatate [Tessalon Perles] 100 mg PO Q8HR PRN #20 capsule 06/23/18 Unknown Rx Hydrocodone/Chlorphen P-Stirex 115 ml PO Q12HR PRN #180 skip.er.12h 06/23/18 Unknown Rx [Tussionex Pennkinetic Susp] Fluconazole [Diflucan TAB] 100 mg PO BID #2 tablet 06/28/18 Unknown Rx ALBUTEROL Inhaler(NF) [VENTOLIN 2 puff IH Q4HR #1 inha 07/26/18 Unknown Rx Inhaler(NF)] Azithromycin [Zithromax Z-MEREDITH] 250 mg PO DAILY #6 tablet 07/26/18 Unknown Rx Brompheniramine/Pseudoephed/Dm 10 ml PO Q4-6H PRN #200 syrup 07/26/18 Unknown Rx [Bromfed Dm 2-30-10 mg/5 ml Syr] Diclofenac Sodium 50 mg PO BID #20 tablet.dr 07/26/18 Unknown Rx predniSONE [Deltasone] 20 mg PO DAILY #15 tab 07/26/18 Unknown Rx Albuterol Sulfate [Proventil Hfa] 6.7 gm IH BID #1 hfa.aer.ad 08/17/18 Unknown Rx predniSONE [Deltasone] 20 mg PO DAILY #15 tablet 08/17/18 Unknown Rx Azithromycin [Zithromax] 500 mg PO QDAY #3 tablet 01/02/21 Unknown Rx Benzonatate [Tessalon Perles] 100 mg PO Q8HR #30 capsule 01/02/21 Unknown Rx Montelukast [Singulair] 10 mg PO QPM #14 tablet 01/02/21 Unknown Rx predniSONE [Deltasone] 50 mg PO QDAY #5 tab 01/02/21 Unknown Rx Prednisone [predniSONE 10 mg 10 mg PO .TAPER #1 tab.ds.pk 02/18/21 Unknown Rx (6-Day Pack, 21 Tabs)] Ondansetron [Zofran Odt] 4 mg PO Q8HR PRN #15 tab.rapdis 04/07/21 Unknown Rx ED Review of Systems ROS: Stated complaint: COVID POSITIVE/DIAREHA,COUGHING Other details as noted in HPI Comment: All other systems reviewed and negative Constitutional: fever. denies: malaise Eyes: denies: eye pain, vision change ENT: denies: ear pain, throat pain Respiratory: cough, shortness of breath Cardiovascular: denies: chest pain, edema Gastrointestinal: nausea, vomiting, diarrhea Genitourinary: denies: dysuria, discharge Musculoskeletal: myalgia. denies: joint swelling Skin: denies: rash, lesions Neurological: denies: weakness, numbness, paresthesias Physical Exam - Physical Exam Vital Signs: Vital Signs 04/07/21 12:11 Temperature 102.9 F H Pulse Rate 115 H Respiratory 16 Rate Blood Pressure 128/84 O2 Sat by Pulse 99 Oximetry Physical Exam: GENERAL: The patient is well-developed well-nourished. HENT: Normocephalic. Atraumatic. Patient has moist mucous membranes. EYES: Extraocular motions are intact. NECK: Supple. Trachea is midline. CHEST/LUNGS: There is no respiratory distress noted. HEART/CARDIOVASCULAR: There is mild tachycardia. ABDOMEN: Abdomen is soft, nontender. There is no abdominal distention. SKIN: Skin is warm and dry. NEURO: The patient is awake, alert, and oriented. The patient is cooperative. The patient has no focal neurologic deficits. Normal speech. MUSCULOSKELETAL: There is no tenderness or deformity. There is no limitation range of motion. ED Course Vital Signs 04/07/21 12:11 Temperature 102.9 F H Pulse Rate 115 H Respiratory 16 Rate Blood Pressure 128/84 O2 Sat by Pulse 99 Oximetry ED Medical Decision Making - Lab Data Result diagrams: 04/07/21 12:53 04/07/21 12:53 Lab Results 04/07/21 04/07/21 04/07/21 Range/Units 12:53 12:53 Unknown WBC 6.8 (4.5-11.0) K/mm3 RBC 4.33 (3.65-5.03) M/mm3 Hgb 10.1 (10.1-14.3) gm/dl Hct 32.6 (30.3-42.9) % MCV 75 L (79-97) fl MCH 23 L (28-32) pg MCHC 31 (30-34) % RDW 15.6 H (13.2-15.2) % Plt Count 219 (140-440) K/mm3 Lymph % (Auto) 13.2 L (13.4-35.0) % Howell % (Auto) 4.8 (0.0-7.3) % Eos % (Auto) 0.0 (0.0-4.3) % Baso % (Auto) 0.2 (0.0-1.8) % Lymph # (Auto) 0.9 L (1.2-5.4) K/mm3 Howell # (Auto) 0.3 (0.0-0.8) K/mm3 Eos # (Auto) 0.0 (0.0-0.4) K/mm3 Baso # (Auto) 0.0 (0.0-0.1) K/mm3 Seg Neutrophils % 81.8 H (40.0-70.0) % Seg Neutrophils # 5.6 (1.8-7.7) K/mm3 Sodium 135 L (137-145) mmol/L Potassium 3.5 L (3.6-5.0) mmol/L Chloride 100.5 (98-107) mmol/L Carbon Dioxide 21 L (22-30) mmol/L Anion Gap 17 mmol/L BUN 7 (7-17) mg/dL Creatinine 0.8 (0.6-1.2) mg/dL Estimated GFR > 60 ml/min BUN/Creatinine Ratio 9 % Glucose 93 (65-100) mg/dL Calcium 7.9 L (8.4-10.2) mg/dL Total Bilirubin 0.40 (0.1-1.2) mg/dL AST 68 H (5-40) units/L ALT 69 H (7-56) units/L Alkaline Phosphatase 53 (35-129) units/L Total Protein 7.0 (6.3-8.2) g/dL Albumin 3.5 L (3.9-5) g/dL Albumin/Globulin Ratio 1.0 % Urine HCG, Qual Negative (Negative) - Radiology Data Radiology results: image reviewed interpreted by me: Chest x-ray does not show any acute process. There are no pleural effusions, obvious pneumonia and there is no pneumothorax. No widened mediastinum. - Medical Decision Making This patient presents to the emergency department with complaint of nausea and vomiting, occasional cough, fever, and being positive for COVID-19. On exam ination the patient has some mild tachycardia, but does not appear in any respiratory or acute distress. Chest x-ray does not show any pneumonia, pleural effusions, pneumothorax, widened mediastinum, or any other acute process. Labs have been mostly unremarkable except for some mild transaminitis. The patient was given some IV fluid resuscitation, antipyretic and antiemetics. Upon reevaluation she is feeling somewhat improved and able to pass an oral challenge. We discussed the transaminitis and she understands to avoid alcohol or any significant Tylenol/acetaminophen use. The patient does not have any oxygen desaturation or increased work of breathing and does not appear to require a medical admission at this time. We discussed isolation/quarantine. She will be given a prescription for Zofran ODT. Critical Care Time: No Critical care attestation.: If time is entered above; I have spent that time in minutes in the direct care o f this critically ill patient, excluding procedure time. ED Disposition Clinical Impression: COVID-19, Body aches, Elevated liver enzymes Nausea & vomiting Qualifiers: Vomiting type: unspecified Vomiting Intractability: non-intractable Qualified Code(s): R11.2 - Nausea with vomiting, unspecified Fever Qualifiers: Fever type: unspecified Qualified Code(s): R50.9 - Fever, unspecified Disposition: 01 HOME / SELF CARE / HOMELESS Is pt being admited?: No Condition: Stable Instructions: COVID-19 Frequently Asked Questions, Fever, Adult, COVID-19, Nausea and Vomiting, Adult Additional Instructions: You were found to have elevated liver enzymes on your laboratory studies today. Because of this, please avoid any alcohol use or any significant Tylen ol/acetaminophen use. Please isolate/quarantine yourself from anybody who is elderly, immunocomprom ised, chronically ill debilitated, and especially those that are not vaccinated against COVID-19. You can take ibuprofen every 6-8 hours, using dosing on the back of the bottle, as needed for fever or body aches. Take the ibuprofen with food. Make sure you drink plenty of water. Return to the emergency department with any worsening of your symptoms, new or concerning symptoms not addressed during this current emergency department visit, or with any acute distress. Prescriptions: Ondansetron [Zofran Odt] 4 mg PO Q8HR PRN #15 tab.rapdis PRN Reason: Nausea Referrals: KYLE CALDERA MD [Staff Physician] - 3-5 Days [facility] [Provider Group] - 3-5 Days Time of Disposition: 15:16
[2021-04-07 13:26] LABS: HCG Qualitative,Urine Negative (Negative)
[2021-04-07] MEDS ORDERED: KETOROLAC 30 MG/1 ML INJ IV ONE (13:35)
[2021-04-07 13:45] LABS: Basophils % (Auto) 0.2 % (0.0-1.8); Hematocrit 32.6 % (30.3-42.9); Hemoglobin 10.1 gm/dl (10.1-14.3); Lymphocytes # (Auto) 0.9 K/mm3 (1.2-5.4); Lymphocytes % (Auto) 13.2 % (13.4-35.0); Mean Corpuscular HGB Conc 31 % (30-34); Mean Corpuscular Volume 75 fl (79-97); Monocytes # (Auto) 0.3 K/mm3 (0.0-0.8); Monocytes % (Auto) 4.8 % (0.0-7.3); Platelet Count 219 K/mm3 (140-440); Red Blood Count 4.33 M/mm3 (3.65-5.03); Red Cell Distribution Width 15.6 % (13.2-15.2)
--- NOTE | 2021-04-07 14:00 | XRay Report ---
CHEST 1 VIEW, 04/07/2021 12:53 PM CLINICAL INFORMATION/INDICATION: Cough COMPARISON: Chest radiograph, 01/02/2021 FINDINGS: SUPPORT DEVICES: None. HEART: The cardiac silhouette is normal in size. LUNGS/PLEURA: There is no focal airspace consolidation or significant pleural effusion. ADDITIONAL FINDINGS: No additional acute findings. IMPRESSION: 1. No evidence of acute cardiopulmonary process. Signer Name: Renata Claudio MD Signed: 04/07/2021 1:56 PM Workstation Name: [id number]
[2021-04-07 14:21] LABS: Alanine Aminotransferase 69 units/L (7-56); Albumin 3.5 g/dL (3.9-5); BUN/Creatinine Ratio 9; Blood Urea Nitrogen 7 mg/dL (7-17); Calcium 7.9 mg/dL (8.4-10.2); Hemolysis Index 54
[2021-04-07 14:45] VITALS: BP 112/72
== END 2021-04-07 15:43 | disposition home or self-care (01) ==
LOC: ED 12:06
DX: U07.1 COVID-19 (principal); R11.2 Nausea with vomiting, unspecified; R50.9 Fever, unspecified; R74.01 Elevation of levels of liver transaminase levels; K21.9 Gastro-esophageal reflux disease without esophagitis; F41.9 Anxiety disorder, unspecified; F32.9 Major depressive disorder, single episode, unspecified; M19.90 Unspecified osteoarthritis, unspecified site; D64.9 Anemia, unspecified; Z87.891 Personal history of nicotine dependence
CPT/HCPCS: 36415; 71045; 80053; 81025; 85025; 96361; 96374; 96375; 99284; J1885; J2405; J7030

== ENCOUNTER 2021-04-10 06:01 | Emergency (ER) | payer OTHER ==
[2021-04-10] MEDS ORDERED: BENZONATATE 100 MG CAP PO ONE (08:03)
[2021-04-10] MEDS ORDERED: ONDANSETRON 4 MG ODT TAB PO ONE (08:04)
[2021-04-10] MEDS: ACETAMINOPHEN 500 MG TAB PO ONE ×2 (08:23→09:38)
--- NOTE | 2021-04-10 08:32 | XRay Report ---
CHEST 2 VIEWS INDICATION / CLINICAL INFORMATION: cough. COMPARISON: 04/07/2021 FINDINGS: SUPPORT DEVICES: None. HEART / MEDIASTINUM: Unchanged LUNGS / PLEURA: There are bilateral airspace opacities in the mid lower lung zones characteristic of pneumonia. No pneumothorax. ADDITIONAL FINDINGS: No significant additional findings. IMPRESSION: 1. There are bilateral patchy airspace opacities characteristic of pneumonia. Signer Name: Tristen Kim MD Signed: 04/10/2021 8:28 AM Workstation Name: [id number]
[2021-04-10 08:38] LABS: Basophils % (Auto) 0.2 % (0.0-1.8); Eosinophils # (Auto) 0.1 K/mm3 (0.0-0.4); Eosinophils % (Auto) 3.5 % (0.0-4.3); Hematocrit 30.7 % (30.3-42.9); Hemoglobin 9.6 gm/dl (10.1-14.3); Lymphocytes # (Auto) 0.9 K/mm3 (1.2-5.4); Lymphocytes % (Auto) 26.7 % (13.4-35.0); Mean Corpuscular HGB Conc 31 % (30-34); Mean Corpuscular Volume 74 fl (79-97); Monocytes # (Auto) 0.2 K/mm3 (0.0-0.8); Monocytes % (Auto) 7.1 % (0.0-7.3); Platelet Count 225 K/mm3 (140-440); Red Blood Count 4.15 M/mm3 (3.65-5.03); Red Cell Distribution Width 15.9 % (13.2-15.2)
[2021-04-10 08:58] LABS: INR 0.88 (0.87-1.13)
[2021-04-10 09:00] LABS: Partial Thromboplastin Time 30.4 Sec. (24.2-36.6)
[2021-04-10] MEDS ORDERED: cefTRIAXone/NS 1 GM/50 ML 1 GM/50 ML BAG IV ONE (09:01)
[2021-04-10] MEDS ORDERED: AZITHROMYCIN/NS 500 MG/250 ML 500 MG/250 ML BAG IV ONE (09:01)
[2021-04-10 09:04] LABS: Alanine Aminotransferase 47 units/L (7-56); Albumin 3.5 g/dL (3.9-5); Blood Urea Nitrogen 6 mg/dL (7-17); Calcium 7.9 mg/dL (8.4-10.2); Hemolysis Index 3
[2021-04-10] MEDS ORDERED: POTASSIUM CHLORIDE ER 20 MEQ TAB PO ONE (09:11)
[2021-04-10 09:16] LABS: BUN/Creatinine Ratio 10
--- NOTE | 2021-04-10 10:58 | Cat Scan Report ---
CT chest with contrast INDICATION : Chest pain and shortness of breath. TECHNIQUE: 100 mL of intravenous contrast administered. All CT scans at this location are performed using CT dose reduction for ALARA by means of automated exposure control. COMPARISON: 04/10/2021. FINDINGS: No filling defect to suggest presence of pulmonary embolism. Multifocal areas of patchy lower lobe predominant consolidation in a pattern most consistent with inf ection. No pleural effusion or pneumothorax. Heart is within normal limits in terms of size. No evidence of pericardial effusion. No mediastinal o r axillary lymphadenopathy. Osseous structures show no evidence acute fracture or aggressive osseous destructive lesion. Limited evaluation of the upper abdomen is unremarkable. IMPRESSION: Multifocal patchy lower lobe predominant consolidation consistent with infection. No evidence of pulmonary embolism. Signer Name: Obed Perez MD Signed: 04/10/2021 10:54 AM Workstation Name: [id number]
--- NOTE | 2021-04-10 11:54 | Emergency Department Report ---
- General Chief Complaint: Upper Respiratory Infection Stated Complaint: COVID+ CHEST PRESSURE COUGH FEVER NAUSEA Time Seen by Provider: 04/10/21 07:58 Source: patient Mode of arrival: Ambulatory Limitations: No Limitations - History of Present Illness Initial Comments: This is a 35-year-old female nontoxic, well nourished in appearance, no acute signs of distress presents to the ED with c/o of productive cough, subjective fever, chills, body aches, chest tightness, shortness of breath, rhinorrhea, nasal congestion x3 days. Patient stated symptoms started after being diagnosed with Covid. Patient describes productive cough as yellow mucus production. Patient denies sick contacts. Patient denies being Covid vaccinated. Patient denies any recent travels, long car, recent hospital stays. Patient denies any calf pain or calf tenderness. Patient denies any other symptoms or complaints. Patient denies any chest pain, nausea, vomiting, hemoptysis, numbness, tingling, headache or stiff neck. Patient denies any significant past medical history. MD Complaint: cough, rhinorrhea, nasal congestion -: days(s) Severity: mild Severity scale (0 -10): 3 Quality: aching Consistency: constant Improves With: nothing Worsens With: nothing Associated Symptoms: fever, chills, rhinorrhea, nasal congestion, cough, shortness of breath. denies: myalgias, diaphoresis, headache, sore throat, stiff neck, chest pain, abdominal pain, nausea, vomiting, diarrhea, dysuria, rash, confusion, right sweats, weight loss, epistaxis, hoarseness, ear pain Treatments Prior to Arrival: none - Related Data Previous Rx's Medication Instructions Recorded Last Taken Type LORazepam [Ativan] 0.5 mg PO BID PRN #20 tab 12/05/16 Unknown Rx Ondansetron [Zofran Odt] 4 mg PO TID PRN #25 tab.rapdis 12/05/16 Unknown Rx Promethazine [Phenergan TAB] 25 mg PO Q8HR PRN #25 tab 12/05/16 Unknown Rx Loperamide [Imodium] 2 mg PO Q2HR #15 capsule 12/05/17 Unknown Rx Mag Hydrox/Aluminum Hyd/Simeth 30 ml PO QID PRN #1 bottle 12/05/17 Unknown Rx [Maalox Advanced Suspension] Ondansetron [Zofran Odt] 4 mg PO Q8H PRN #20 tab.rapdis 12/05/17 Unknown Rx Fluconazole (Nf) [Diflucan TAB] 150 mg PO ONCE #1 tablet 02/21/18 Unknown Rx HYDROcodone/APAP 5-325 [[place] 1 - 2 each PO Q6HR PRN #10 tablet 02/21/18 Unknown Rx 5/325] ALBUTEROL Inhaler(NF) [VENTOLIN 1 puff IH PRN #1 inha 05/19/18 Unknown Rx Inhaler(NF)] Dextromethorphan HBr [Tussin Cough] 15 mg PO TID 7 Days #1 bottle 05/19/18 Unknown Rx Ibuprofen [Motrin 800 MG tab] 800 mg PO Q8HR PRN #20 tablet 05/19/18 Unknown Rx predniSONE 10 mg PO QDAY #4 tab 05/19/18 Unknown Rx Benzonatate [Tessalon Perles] 100 mg PO Q8HR PRN #20 capsule 06/23/18 Unknown Rx Hydrocodone/Chlorphen P-Stirex 115 ml PO Q12HR PRN #180 skip.er.12h 06/23/18 Unknown Rx [Tussionex Pennkinetic Susp] Fluconazole [Diflucan TAB] 100 mg PO BID #2 tablet 06/28/18 Unknown Rx ALBUTEROL Inhaler(NF) [VENTOLIN 2 puff IH Q4HR #1 inha 07/26/18 Unknown Rx Inhaler(NF)] Azithromycin [Zithromax Z-MEREDITH] 250 mg PO DAILY #6 tablet 07/26/18 Unknown Rx Brompheniramine/Pseudoephed/Dm 10 ml PO Q4-6H PRN #200 syrup 07/26/18 Unknown Rx [Bromfed Dm 2-30-10 mg/5 ml Syr] Diclofenac Sodium 50 mg PO BID #20 tablet.dr 07/26/18 Unknown Rx predniSONE [Deltasone] 20 mg PO DAILY #15 tab 07/26/18 Unknown Rx Albuterol Sulfate [Proventil Hfa] 6.7 gm IH BID #1 hfa.aer.ad 08/17/18 Unknown Rx predniSONE [Deltasone] 20 mg PO DAILY #15 tablet 08/17/18 Unknown Rx Azithromycin [Zithromax] 500 mg PO QDAY #3 tablet 01/02/21 Unknown Rx Benzonatate [Tessalon Perles] 100 mg PO Q8HR #30 capsule 01/02/21 Unknown Rx Montelukast [Singulair] 10 mg PO QPM #14 tablet 01/02/21 Unknown Rx predniSONE [Deltasone] 50 mg PO QDAY #5 tab 01/02/21 Unknown Rx Prednisone [predniSONE 10 mg 10 mg PO .TAPER #1 tab.ds.pk 02/18/21 Unknown Rx (6-Day Pack, 21 Tabs)] Ondansetron [Zofran Odt] 4 mg PO Q8HR PRN #15 tab.rapdis 04/07/21 Unknown Rx Azithromycin [Zithromax Z-MEREDITH] 250 mg PO DAILY #6 tablet 04/10/21 Unknown Rx Benzonatate [Tessalon Perles] 100 mg PO Q8HR PRN #12 capsule 04/10/21 Unknown Rx Allergies Allergy/AdvReac Type Severity Reaction Status Date / Time hydroxyzine HCl Allergy Shortness Verified 12/03/16 18:50 [From Vistaril] of Breath hydroxyzine pamoate Allergy Shortness Verified 12/03/16 18:50 [From Vistaril] of Breath methocarbamol [From Robaxin] Allergy Shortness Verified 12/03/16 18:50 of Breath sulfamethoxazole Allergy Hives Verified 12/03/16 18:50 [From Bactrim] trimethoprim [From Bactrim] Allergy Hives Verified 12/03/16 18:50 ED Review of Systems ROS: Stated complaint: COVID+ CHEST PRESSURE COUGH FEVER NAUSEA Other details as noted in HPI Comment: All other systems reviewed and negative Constitutional: chills, fever Eyes: denies: eye pain, eye discharge, vision change ENT: congestion. denies: ear pain, throat pain Respiratory: cough, shortness of breath. denies: orthopnea, SOB with exertion, SOB at rest, wheezing Cardiovascular: denies: chest pain, palpitations, dyspnea on exertion, orthopnea, edema, syncope, paroxysmal nocturnal dyspnea Endocrine: no symptoms reported Gastrointestinal: denies: abdominal pain, nausea, diarrhea Genitourinary: denies: urgency, dysuria, discharge Musculoskeletal: denies: back pain, joint swelling, arthralgia Skin: denies: rash, lesions Neurological: denies: headache, weakness, paresthesias Psychiatric: denies: anxiety, depression Hematological/Lymphatic: denies: easy bleeding, easy bruising ED Past Medical Hx - Past Medical History Hx GERD: Yes Hx Psychiatric Treatment: Yes (anxiety,depression) Hx Asthma: Yes Additional medical history: anemia, GERD - Surgical History Past Surgical History?: No - Social History Smoking Status: Never Smoker Substance Use Type: None - Medications Home Medications: Home Medications Medication Instructions Recorded Confirmed Last Taken Type LORazepam [Ativan] 0.5 mg PO BID PRN #20 tab 12/05/16 Unknown Rx Ondansetron [Zofran Odt] 4 mg PO TID PRN #25 tab.rapdis 12/05/16 Unknown Rx Promethazine [Phenergan TAB] 25 mg PO Q8HR PRN #25 tab 12/05/16 Unknown Rx Loperamide [Imodium] 2 mg PO Q2HR #15 capsule 12/05/17 Unknown Rx Mag Hydrox/Aluminum Hyd/Simeth 30 ml PO QID PRN #1 bottle 12/05/17 Unknown Rx [Maalox Advanced Suspension] Ondansetron [Zofran Odt] 4 mg PO Q8H PRN #20 tab.rapdis 12/05/17 Unknown Rx Fluconazole (Nf) [Diflucan TAB] 150 mg PO ONCE #1 tablet 02/21/18 Unknown Rx HYDROcodone/APAP 5-325 [[place] 1 - 2 each PO Q6HR PRN #10 tablet 02/21/18 Unknown Rx 5/325] ALBUTEROL Inhaler(NF) [VENTOLIN 1 puff IH PRN #1 inha 05/19/18 Unknown Rx Inhaler(NF)] Dextromethorphan HBr [Tussin Cough] 15 mg PO TID 7 Days #1 bottle 05/19/18 Unknown Rx Ibuprofen [Motrin 800 MG tab] 800 mg PO Q8HR PRN #20 tablet 05/19/18 Unknown Rx predniSONE 10 mg PO QDAY #4 tab 05/19/18 Unknown Rx Benzonatate [Tessalon Perles] 100 mg PO Q8HR PRN #20 capsule 06/23/18 Unknown Rx Hydrocodone/Chlorphen P-Stirex 115 ml PO Q12HR PRN #180 skip.er.12h 06/23/18 Unknown Rx [Tussionex Pennkinetic Susp] Fluconazole [Diflucan TAB] 100 mg PO BID #2 tablet 06/28/18 Unknown Rx ALBUTEROL Inhaler(NF) [VENTOLIN 2 puff IH Q4HR #1 inha 07/26/18 Unknown Rx Inhaler(NF)] Azithromycin [Zithromax Z-MEREDITH] 250 mg PO DAILY #6 tablet 07/26/18 Unknown Rx Brompheniramine/Pseudoephed/Dm 10 ml PO Q4-6H PRN #200 syrup 07/26/18 Unknown Rx [Bromfed Dm 2-30-10 mg/5 ml Syr] Diclofenac Sodium 50 mg PO BID #20 tablet.dr 07/26/18 Unknown Rx predniSONE [Deltasone] 20 mg PO DAILY #15 tab 07/26/18 Unknown Rx Albuterol Sulfate [Proventil Hfa] 6.7 gm IH BID #1 hfa.aer.ad 08/17/18 Unknown Rx predniSONE [Deltasone] 20 mg PO DAILY #15 tablet 08/17/18 Unknown Rx Azithromycin [Zithromax] 500 mg PO QDAY #3 tablet 01/02/21 Unknown Rx Benzonatate [Tessalon Perles] 100 mg PO Q8HR #30 capsule 01/02/21 Unknown Rx Montelukast [Singulair] 10 mg PO QPM #14 tablet 01/02/21 Unknown Rx predniSONE [Deltasone] 50 mg PO QDAY #5 tab 01/02/21 Unknown Rx Prednisone [predniSONE 10 mg 10 mg PO .TAPER #1 tab.ds.pk 02/18/21 Unknown Rx (6-Day Pack, 21 Tabs)] Ondansetron [Zofran Odt] 4 mg PO Q8HR PRN #15 tab.rapdis 04/07/21 Unknown Rx Azithromycin [Zithromax Z-MEREDITH] 250 mg PO DAILY #6 tablet 04/10/21 Unknown Rx Benzonatate [Tessalon Perles] 100 mg PO Q8HR PRN #12 capsule 04/10/21 Unknown Rx ED Physical Exam - General Limitations: No Limitations General appearance: alert, in no apparent distress - Head Head exam: Present: atraumatic, normocephalic - Eye Eye exam: Present: normal appearance - ENT ENT exam: Present: normal exam, normal orophraynx - Neck Neck exam: Present: normal inspection, full ROM. Absent: lymphadenopathy - Respiratory Respiratory exam: Present: normal lung sounds bilaterally. Absent: respiratory distress, wheezes, rales, rhonchi, stridor, chest wall tenderness, accessory muscle use, decreased breath sounds, prolonged expiratory - Cardiovascular Cardiovascular Exam: Present: regular rate, normal rhythm, normal heart sounds. Absent: bradycardia, tachycardia, irregular rhythm, systolic murmur, diastolic murmur, rubs, gallop - GI/Abdominal GI/Abdominal exam: Present: soft, normal bowel sounds. Absent: distended, tenderness, guarding, rebound, rigid, diminished bowel sounds - Extremities Exam Extremities exam: Present: normal inspection, full ROM, normal capillary refill. Absent: tenderness - Back Exam Back exam: Present: normal inspection, full ROM. Absent: tenderness, CVA tenderness (R), CVA tenderness (L), muscle spasm, paraspinal tenderness, vertebral tenderness, rash noted - Neurological Exam Neurological exam: Present: alert, oriented X3, normal gait - Psychiatric Psychiatric exam: Present: normal affect, normal mood - Skin Skin exam: Present: warm, dry, intact, normal color. Absent: rash ED Course Vital Signs 04/10/21 04/10/21 04/10/21 06:27 09:18 09:31 Temperature 98.5 F Pulse Rate 83 84 80 Respiratory 28 H 19 28 H Rate Blood Pressure 126/81 120/78 O2 Sat by Pulse 100 100 100 Oximetry 04/10/21 04/10/21 04/10/21 09:38 09:45 09:49 Temperature Pulse Rate 78 Respiratory 18 25 H 18 Rate Blood Pressure 121/81 O2 Sat by Pulse 99 98 Oximetry - Reevaluation(s) Reevaluation #1: 04/10/21 11:56 Patient is speaking in full sentences with no signs of distress noted. ED Medical Decision Making - Lab Data Result diagrams: 04/10/21 08:25 04/10/21 08:25 Lab Results 04/10/21 04/10/21 04/10/21 Range/Units 08:25 08:25 08:25 WBC 3.4 L (4.5-11.0) K/mm3 RBC 4.15 (3.65-5.03) M/mm3 Hgb 9.6 L (10.1-14.3) gm/dl Hct 30.7 (30.3-42.9) % MCV 74 L (79-97) fl MCH 23 L (28-32) pg MCHC 31 (30-34) % RDW 15.9 H (13.2-15.2) % Plt Count 225 (140-440) K/mm3 Lymph % (Auto) 26.7 (13.4-35.0) % [place] % (Auto) 7.1 (0.0-7.3) % Eos % (Auto) 3.5 (0.0-4.3) % Baso % (Auto) 0.2 (0.0-1.8) % Lymph # (Auto) 0.9 L (1.2-5.4) K/mm3 [place] # (Auto) 0.2 (0.0-0.8) K/mm3 Eos # (Auto) 0.1 (0.0-0.4) K/mm3 Baso # (Auto) 0.0 (0.0-0.1) K/mm3 Seg Neutrophils % 62.5 (40.0-70.0) % Seg Neutrophils # 2.1 (1.8-7.7) K/mm3 PT 13.0 (12.2-14.9) Sec. INR 0.88 (0.87-1.13) APTT 30.4 (24.2-36.6) Sec. Sodium 136 L (137-145) mmol/L Potassium 3.2 L (3.6-5.0) mmol/L Chloride 99.7 (98-107) mmol/L Carbon Dioxide 21 L (22-30) mmol/L Anion Gap 19 mmol/L BUN 6 L (7-17) mg/dL Creatinine 0.6 (0.6-1.2) mg/dL Estimated GFR > 60 ml/min BUN/Creatinine Ratio 10 % Glucose 79 (65-100) mg/dL Calcium 7.9 L (8.4-10.2) mg/dL Total Bilirubin 0.60 (0.1-1.2) mg/dL AST 31 (5-40) units/L ALT 47 (7-56) units/L Alkaline Phosphatase 62 (35-129) units/L Troponin T < 0.010 (0.00-0.029) ng/mL Total Protein 7.0 (6.3-8.2) g/dL Albumin 3.5 L (3.9-5) g/dL Albumin/Globulin Ratio 1.0 % HCG, Qual (Negative) 04/10/21 04/10/21 Range/Units 08:25 11:42 WBC (4.5-11.0) K/mm3 RBC (3.65-5.03) M/mm3 Hgb (10.1-14.3) gm/dl Hct (30.3-42.9) % MCV (79-97) fl MCH (28-32) pg MCHC (30-34) % RDW (13.2-15.2) % Plt Count (140-440) K/mm3 Lymph % (Auto) (13.4-35.0) % [place] % (Auto) (0.0-7.3) % Eos % (Auto) (0.0-4.3) % Baso % (Auto) (0.0-1.8) % Lymph # (Auto) (1.2-5.4) K/mm3 [place] # (Auto) (0.0-0.8) K/mm3 Eos # (Auto) (0.0-0.4) K/mm3 Baso # (Auto) (0.0-0.1) K/mm3 Seg Neutrophils % (40.0-70.0) % Seg Neutrophils # (1.8-7.7) K/mm3 PT (12.2-14.9) Sec. INR (0.87-1.13) APTT (24.2-36.6) Sec. Sodium (137-145) mmol/L Potassium (3.6-5.0) mmol/L Chloride (98-107) mmol/L Carbon Dioxide (22-30) mmol/L Anion Gap mmol/L BUN (7-17) mg/dL Creatinine (0.6-1.2) mg/dL Estimated GFR ml/min BUN/Creatinine Ratio % Glucose (65-100) mg/dL Calcium (8.4-10.2) mg/dL Total Bilirubin (0.1-1.2) mg/dL AST (5-40) units/L ALT (7-56) units/L Alkaline Phosphatase (35-129) units/L Troponin T < 0.010 (0.00-0.029) ng/mL Total Protein (6.3-8.2) g/dL Albumin (3.9-5) g/dL Albumin/Globulin Ratio % HCG, Qual Negative (Negative) - Radiology Data [facility] [address] [place] [address] Cat Scan Report Signed Patient: AUGUSTO BUTTS MR# : [id number] : 1985 Acct:[id number] Age/Sex: 35 / F ADM Date: 04/10/21 Loc: ED Attending Dr: Ordering Physician: FLORES BERGERON NP Date of Service: 04/10/21 Procedure(s): CT angio chest Accession Number(s): [id number] cc: FLORES BERGERON NP CT chest with contrast INDICATION : Chest pain and shortness of breath. TECHNIQUE: 100 mL of intravenous contrast administered. All CT scans at this location are performed using CT dose reduction for ALARA by means of automated exposure control. COMPARISON: 04/10/2021. FINDINGS: No filling defect to suggest presence of pulmonary embolism. Multifocal areas of patchy lower lobe predominant consolidation in a pattern most consistent with infection. No pleural effusion or pneumothorax. Heart is within normal limits in terms of size. No evidence of pericardial effusion. No mediastinal or axillary lymphadenopathy. Osseous structures show no evidence acute fracture or aggressive osseous destructive lesion. Limited evaluation of the upper abdomen is unremarkable. IMPRESSION: Multifocal patchy lower lobe predominant consolidation consistent with infection. No evidence of pulmonary embolism. Signer Name: Obed Rios MD Signed: 04/10/2021 10:54 AM Workstation Name: [id number] Transcribed By: KELSIE Dictated By: OBED RIOS MD Electronically Authenticated By: OBED RIOS MD Signed Date/Time: 04/10/21 1054 DD/ 1048 TD/TT: - Medical Decision Making This is a 35-year-old female that presents with COVID with PNA. Patient is stable and was examined by me. Chest imaging has been obtained and dictated by radiologist with normal exam. Patient is notified of x-ray results with no questions noted. Labs obtained. Troponin negative. EKG obtained. NESSA and HEART score 0 pints. Patient was instructed to increase hydration, rest and take Tylenol for fever episodes. Patient received Rocephin and azithromycin IV in the ED. Vitals stable prior to discharge. Patient was not hypoxic during physical exam and patient ambulatory without hypoxemia. Patient is nonfebrile a nd normal heart rate. Patient was instructed Follow-up with a primary care doctor in 3-5 days or if symptoms worsen and continue return to emergency room as soon as possible. At time time of discharge, the patient does not seem toxic or ill in appearance. No acute signs of distress noted. Patient agrees to discharge treatment plan of care. No further questions noted by the patient.nt. Critical care attestation.: If time is entered above; I have spent that time in minutes in the direct care of this critically ill patient, excluding procedure time. ED Disposition Clinical Impression: COVID-19 PNA (pneumonia) Qualifiers: Pneumonia type: due to unspecified organism Laterality: bilateral Lung location: unspecified part of lung Qualified Code(s): J18.9 - Pneumonia, unspecified organism Disposition: HOME / SELF CARE / HOMELESS Is pt being admited?: No Does the pt Need Aspirin: No Condition: Stable Instructions: Bacterial Pneumonia (ED), COVID-19, COVID-19 Frequently Asked Questions, Community-Acquired Pneumonia, Adult Additional Instructions: Follow-up with a primary care doctor in 3-5 days or if symptoms worsen and continue return to emergency room as soon as possible. Increased rest, hydration, and take Tylenol as prescribed for fever episode. Prescriptions: Benzonatate [Tessalon Perles] 100 mg PO Q8HR PRN #12 capsule PRN Reason: Cough Azithromycin [Zithromax Z-MEREDITH] 250 mg PO DAILY #6 tablet Referrals: PRIMARY CAREMD [Primary Care Provider] - 3-5 Days KYLE CALDERA MD [Staff Physician] - 3-5 Days Time of Disposition: 12:49
[2021-04-10 13:09] VITALS: BP 123/84
--- NOTE | 2021-04-11 17:35 | Electrocardiograph Report ---
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
== END 2021-04-10 13:10 | disposition home or self-care (01) ==
LOC: ED 06:01
DX: U07.1 COVID-19 (principal); J18.9 Pneumonia, unspecified organism; K21.9 Gastro-esophageal reflux disease without esophagitis; J45.909 Unspecified asthma, uncomplicated; R79.1 Abnormal coagulation profile; F41.9 Anxiety disorder, unspecified; F32.9 Major depressive disorder, single episode, unspecified; Z88.8 Allergy status to other drugs, medicaments and biological substances; Z88.2 Allergy status to sulfonamides; Z79.899 Other long term (current) drug therapy
CPT/HCPCS: 36415; 71046; 71275; 80053; 84484; 84703; 85025; 85610; 85730; 93005; 96365; 96367; 99284; J0456; J0696; Q9967; Q0162

== ENCOUNTER 2021-08-04 18:34 | Emergency (ER) | payer OTHER ==
[2021-08-04 19:30] VITALS: BP 119/82
[2021-08-04 20:26] LABS: Bacteria,Urine 1+ /HPF (Negative); Bilirubin,Urine NEG (Negative); Blood,Urine NEG (Negative); Color,Urine Yellow (Yellow); Protein,Urine <15 mg/dL mg/dL (Negative); RBC,Urine < 1.0 /HPF (0.0-6.0); Urobilinogen,Urine < 2.0 mg/dL (<2.0)
[2021-08-04 21:12] LABS: Basophils # (Auto) 0.1 K/mm3 (0.0-0.1); Basophils % (Auto) 0.9 % (0.0-1.8); Eosinophils # (Auto) 0.2 K/mm3 (0.0-0.4); Eosinophils % (Auto) 2.6 % (0.0-4.3); Hematocrit 31.4 % (30.3-42.9); Hemoglobin 10.1 gm/dl (10.1-14.3); Lymphocytes # (Auto) 2.1 K/mm3 (1.2-5.4); Lymphocytes % (Auto) 30.6 % (13.4-35.0); Mean Corpuscular HGB Conc 32 % (30-34); Mean Corpuscular Volume 77 fl (79-97); Monocytes # (Auto) 0.6 K/mm3 (0.0-0.8); Platelet Count 326 K/mm3 (140-440); Red Cell Distribution Width 16.7 % (13.2-15.2)
[2021-08-04 21:45] LABS: Albumin 4.1 g/dL (3.9-5); BUN/Creatinine Ratio 5; Blood Urea Nitrogen 4 mg/dL (7-17); Calcium 9.4 mg/dL (8.4-10.2); Hemolysis Index 15
[2021-08-04 21:48] LABS: Alanine Aminotransferase < 5 units/L (7-56)
== END 2021-08-05 05:49 | disposition left against medical advice (07) ==
LOC: ED 18:34
DX: R11.2 Nausea with vomiting, unspecified (principal); Z53.21 Procedure and treatment not carried out due to patient leaving prior to being seen by health care provider
CPT/HCPCS: 36415; 80053; 81001; 84703; 85025

== ENCOUNTER 2021-09-03 19:04 | Emergency (ER) | payer OTHER | END 2021-09-03 19:10 | disposition left against medical advice (07) | LOC: ED 19:04 | DX: J45.901 Unspecified asthma with (acute) exacerbation (principal); Z53.21 Procedure and treatment not carried out due to patient leaving prior to being seen by health care provider ==

== ENCOUNTER 2021-09-16 13:56 | Emergency (ER) | payer OTHER ==
[2021-09-16 15:44] LABS: Basophils % (Auto) 0.3 % (0.0-1.8); Eosinophils # (Auto) 0.3 K/mm3 (0.0-0.4); Eosinophils % (Auto) 6.2 % (0.0-4.3); Hematocrit 32.4 % (30.3-42.9); Lymphocytes # (Auto) 1.1 K/mm3 (1.2-5.4); Lymphocytes % (Auto) 20.3 % (13.4-35.0); Mean Corpuscular HGB Conc 31 % (30-34); Mean Corpuscular Volume 77 fl (79-97); Monocytes # (Auto) 0.3 K/mm3 (0.0-0.8); Monocytes % (Auto) 6.3 % (0.0-7.3); Platelet Count 279 K/mm3 (140-440); Red Blood Count 4.22 M/mm3 (3.65-5.03); Red Cell Distribution Width 16.2 % (13.2-15.2)
[2021-09-16 15:58] LABS: Alanine Aminotransferase 7 units/L (7-56); BUN/Creatinine Ratio 6; Blood Urea Nitrogen 5 mg/dL (7-17); Calcium 8.8 mg/dL (8.4-10.2); Hemolysis Index 0
[2021-09-16 16:03] LABS: Bacteria,Urine 4+ /HPF (Negative); Bilirubin,Urine NEG (Negative); Blood,Urine NEG (Negative); Color,Urine Yellow (Yellow); Mucus,Urine 2+ /HPF; Urobilinogen,Urine < 2.0 mg/dL (<2.0)
[2021-09-16] MEDS ORDERED: ONDANSETRON 4 MG/2 ML INJ IV ONE (18:54)
[2021-09-16] MEDS ORDERED: MORPHINE 4 MG/1 ML INJ IV ONE (18:54)
--- NOTE | 2021-09-16 18:57 | Emergency Department Report ---
ED General Adult HPI - General Chief complaint: Abdominal Pain Stated complaint: NAUSEA/VOMITING/ABDOMIANL CRAMPS Time Seen by Provider: 09/16/21 18:46 Source: patient Mode of arrival: Ambulatory Limitations: No Limitations - History of Present Illness Initial comments: 36-year-old -Citizen Of [place] female patient presents with complaints of epigastric/right upper quadrant pain and nausea x4 days. Patient reports a history of GERD and states that she is currently taking Dexilant daily. Patient also reports she had an endoscopy performed on 08/28/2021 that was negative for ulcers or H. pylori. She reports pain seems to worsen immediately after eating. She rates her current pain as a 9/10 in severity. No history of abdominal surgeries, fever/chills/sweats, urinary symptoms, vaginal pain/discharge, or dyspareunia per patient. She also denies any cough or chest pain or shortness of breath - Related Data Previous Rx's Medication Instructions Recorded Last Taken Type LORazepam [Ativan] 0.5 mg PO BID PRN #20 tab 12/05/16 Unknown Rx Ondansetron [Zofran Odt] 4 mg PO TID PRN #25 tab.rapdis 12/05/16 Unknown Rx Promethazine [Phenergan TAB] 25 mg PO Q8HR PRN #25 tab 12/05/16 Unknown Rx Loperamide [Imodium] 2 mg PO Q2HR #15 capsule 12/05/17 Unknown Rx Mag Hydrox/Aluminum Hyd/Simeth 30 ml PO QID PRN #1 bottle 12/05/17 Unknown Rx [Maalox Advanced Suspension] Ondansetron [Zofran Odt] 4 mg PO Q8H PRN #20 tab.rapdis 12/05/17 Unknown Rx Fluconazole (Nf) [Diflucan TAB] 150 mg PO ONCE #1 tablet 02/21/18 Unknown Rx HYDROcodone/APAP 5-325 [[place] 1 - 2 each PO Q6HR PRN #10 tablet 02/21/18 Unknown Rx 5/325] ALBUTEROL Inhaler(NF) [VENTOLIN 1 puff IH PRN #1 inha 05/19/18 Unknown Rx Inhaler(NF)] Dextromethorphan HBr [Tussin Cough] 15 mg PO TID 7 Days #1 bottle 05/19/18 Unknown Rx Ibuprofen [Motrin 800 MG tab] 800 mg PO Q8HR PRN #20 tablet 05/19/18 Unknown Rx predniSONE 10 mg PO QDAY #4 tab 05/19/18 Unknown Rx Benzonatate [Tessalon Perles] 100 mg PO Q8HR PRN #20 capsule 06/23/18 Unknown Rx Hydrocodone/Chlorphen P-Stirex 115 ml PO Q12HR PRN #180 skip.er.12h 06/23/18 Unknown Rx [Tussionex Pennkinetic Susp] Fluconazole [Diflucan TAB] 100 mg PO BID #2 tablet 06/28/18 Unknown Rx ALBUTEROL Inhaler(NF) [VENTOLIN 2 puff IH Q4HR #1 inha 07/26/18 Unknown Rx Inhaler(NF)] Azithromycin [Zithromax Z-MEREDITH] 250 mg PO DAILY #6 tablet 07/26/18 Unknown Rx Brompheniramine/Pseudoephed/Dm 10 ml PO Q4-6H PRN #200 syrup 07/26/18 Unknown Rx [Bromfed Dm 2-30-10 mg/5 ml Syr] Diclofenac Sodium 50 mg PO BID #20 tablet.dr 07/26/18 Unknown Rx predniSONE [Deltasone] 20 mg PO DAILY #15 tab 07/26/18 Unknown Rx Albuterol Sulfate [Proventil Hfa] 6.7 gm IH BID #1 hfa.aer.ad 08/17/18 Unknown Rx predniSONE [Deltasone] 20 mg PO DAILY #15 tablet 08/17/18 Unknown Rx Azithromycin [Zithromax] 500 mg PO QDAY #3 tablet 01/02/21 Unknown Rx Benzonatate [Tessalon Perles] 100 mg PO Q8HR #30 capsule 01/02/21 Unknown Rx Montelukast [Singulair] 10 mg PO QPM #14 tablet 01/02/21 Unknown Rx predniSONE [Deltasone] 50 mg PO QDAY #5 tab 01/02/21 Unknown Rx Prednisone [predniSONE 10 mg 10 mg PO .TAPER #1 tab.ds.pk 02/18/21 Unknown Rx (6-Day Pack, 21 Tabs)] Ondansetron [Zofran Odt] 4 mg PO Q8HR PRN #15 tab.rapdis 04/07/21 Unknown Rx Azithromycin [Zithromax Z-MEREDITH] 250 mg PO DAILY #6 tablet 04/10/21 Unknown Rx Benzonatate [Tessalon Perles] 100 mg PO Q8HR PRN #12 capsule 04/10/21 Unknown Rx Acetaminophen/Codeine [Tylenol 1 tab PO Q8H PRN #15 tab 09/16/21 Unknown Rx /Codeine # 3 tab] Dicyclomine [Bentyl] 20 mg PO QID PRN #30 tablet 09/16/21 Unknown Rx Ondansetron [Zofran Odt] 4 mg PO Q8HR PRN #30 tab.rapdis 09/16/21 Unknown Rx Allergies Allergy/AdvReac Type Severity Reaction Status Date / Time hydroxyzine HCl Allergy Shortness Verified 09/16/21 14:06 [From Vistaril] of Breath hydroxyzine pamoate Allergy Shortness Verified 09/16/21 14:06 [From Vistaril] of Breath methocarbamol [From Robaxin] Allergy Shortness Verified 09/16/21 14:06 of Breath sulfamethoxazole Allergy Hives Verified 09/16/21 14:06 [From Bactrim] trimethoprim [From Bactrim] Allergy Hives Verified 09/16/21 14:06 ED Review of Systems ROS: Stated complaint: NAUSEA/VOMITING/ABDOMIANL CRAMPS Other details as noted in HPI Constitutional: denies: chills, fever, malaise Respiratory: denies: cough, shortness of breath Cardiovascular: denies: chest pain Gastrointestinal: abdominal pain, nausea. denies: vomiting, diarrhea, constipation, hematemesis, melena, hematochezia Genitourinary: denies: urgency, dysuria, frequency, hematuria, discharge, abnormal menses, dyspareunia Musculoskeletal: denies: back pain Skin: denies: change in color Neurological: denies: headache ED Past Medical Hx - Past Medical History Hx GERD: Yes Hx Psychiatric Treatment: Yes (anxiety,depression) Hx Asthma: Yes Additional medical history: anemia, GERD - Social History Smoking Status: Never Smoker Substance Use Type: None - Medications Home Medications: Home Medications Medication Instructions Recorded Confirmed Last Taken Type LORazepam [Ativan] 0.5 mg PO BID PRN #20 tab 12/05/16 Unknown Rx Ondansetron [Zofran Odt] 4 mg PO TID PRN #25 tab.rapdis 12/05/16 Unknown Rx Promethazine [Phenergan TAB] 25 mg PO Q8HR PRN #25 tab 12/05/16 Unknown Rx Loperamide [Imodium] 2 mg PO Q2HR #15 capsule 12/05/17 Unknown Rx Mag Hydrox/Aluminum Hyd/Simeth 30 ml PO QID PRN #1 bottle 12/05/17 Unknown Rx [Maalox Advanced Suspension] Ondansetron [Zofran Odt] 4 mg PO Q8H PRN #20 tab.rapdis 12/05/17 Unknown Rx Fluconazole (Nf) [Diflucan TAB] 150 mg PO ONCE #1 tablet 02/21/18 Unknown Rx HYDROcodone/APAP 5-325 [[place] 1 - 2 each PO Q6HR PRN #10 tablet 02/21/18 Unknown Rx 5/325] ALBUTEROL Inhaler(NF) [VENTOLIN 1 puff IH PRN #1 inha 05/19/18 Unknown Rx Inhaler(NF)] Dextromethorphan HBr [Tussin Cough] 15 mg PO TID 7 Days #1 bottle 05/19/18 Unknown Rx Ibuprofen [Motrin 800 MG tab] 800 mg PO Q8HR PRN #20 tablet 05/19/18 Unknown Rx predniSONE 10 mg PO QDAY #4 tab 05/19/18 Unknown Rx Benzonatate [Tessalon Perles] 100 mg PO Q8HR PRN #20 capsule 06/23/18 Unknown Rx Hydrocodone/Chlorphen P-Stirex 115 ml PO Q12HR PRN #180 skip.er.12h 06/23/18 Unknown Rx [Tussionex Pennkinetic Susp] Fluconazole [Diflucan TAB] 100 mg PO BID #2 tablet 06/28/18 Unknown Rx ALBUTEROL Inhaler(NF) [VENTOLIN 2 puff IH Q4HR #1 inha 07/26/18 Unknown Rx Inhaler(NF)] Azithromycin [Zithromax Z-MEREDITH] 250 mg PO DAILY #6 tablet 07/26/18 Unknown Rx Brompheniramine/Pseudoephed/Dm 10 ml PO Q4-6H PRN #200 syrup 07/26/18 Unknown Rx [Bromfed Dm 2-30-10 mg/5 ml Syr] Diclofenac Sodium 50 mg PO BID #20 tablet. 07/26/18 Unknown Rx predniSONE [Deltasone] 20 mg PO DAILY #15 tab 07/26/18 Unknown Rx Albuterol Sulfate [Proventil Hfa] 6.7 gm IH BID #1 hfa.aer.ad 08/17/18 Unknown Rx predniSONE [Deltasone] 20 mg PO DAILY #15 tablet 08/17/18 Unknown Rx Azithromycin [Zithromax] 500 mg PO QDAY #3 tablet 01/02/21 Unknown Rx Benzonatate [Tessalon Perles] 100 mg PO Q8HR #30 capsule 01/02/21 Unknown Rx Montelukast [Singulair] 10 mg PO QPM #14 tablet 01/02/21 Unknown Rx predniSONE [Deltasone] 50 mg PO QDAY #5 tab 01/02/21 Unknown Rx Prednisone [predniSONE 10 mg 10 mg PO .TAPER #1 tab.ds.pk 02/18/21 Unknown Rx (6-Day Pack, 21 Tabs)] Ondansetron [Zofran Odt] 4 mg PO Q8HR PRN #15 tab.rapdis 04/07/21 Unknown Rx Azithromycin [Zithromax Z-MEREDITH] 250 mg PO DAILY #6 tablet 04/10/21 Unknown Rx Benzonatate [Tessalon Perles] 100 mg PO Q8HR PRN #12 capsule 04/10/21 Unknown Rx Acetaminophen/Codeine [Tylenol 1 tab PO Q8H PRN #15 tab 09/16/21 Unknown Rx /Codeine # 3 tab] Dicyclomine [Bentyl] 20 mg PO QID PRN #30 tablet 09/16/21 Unknown Rx Ondansetron [Zofran Odt] 4 mg PO Q8HR PRN #30 tab.rapdis 09/16/21 Unknown Rx ED Physical Exam - General Limitations: No Limitations General appearance: alert, in no apparent distress - Head Head exam: Present: atraumatic, normocephalic - Eye Eye exam: Present: normal appearance - ENT ENT exam: Present: normal exam - Respiratory Respiratory exam: Present: normal lung sounds bilaterally. Absent: respiratory distress - Cardiovascular Cardiovascular Exam: Present: regular rate, normal rhythm - GI/Abdominal GI/Abdominal exam: Present: soft, tenderness, normal bowel sounds. Absent: distended, guarding, rebound, rigid, mass - Expanded GI/Abdominal Exam Expanded GI/Abdominal exam: Present: Inman's sign. Absent: tenderness at [place]bur[place]'s Point - Neurological Exam Neurological exam: Present: alert, oriented X3 - Psychiatric Psychiatric exam: Present: normal affect, normal mood - Skin Skin exam: Present: warm, dry, intact, normal color. Absent: rash ED Course Vital Signs 09/16/21 14:05 Temperature 98.7 F Pulse Rate 100 H Respiratory 16 Rate Blood Pressure 110/72 O2 Sat by Pulse 100 Oximetry ED Medical Decision Making - Lab Data Result diagrams: 09/16/21 15:00 09/16/21 15:00 - Radiology Data Radiology results: report reviewed LIMITED RUQ ABDOMINAL ULTRASOUND INDICATION / CLINICAL INFORMATION: acute RUQ pain. COMPARISON: No relevant prior imaging study available. FINDINGS: PANCREAS: Visualized portions show no significant abnormality. ABDOMINAL AORTA: No significant abnormality. IVC: No significant abnormality.. LIVER: The liver measures 15.6 cm in length. No significant abnormality. Normal hepatopedal blood flow in the main portal vein. GALLBLADDER: Calcified gallstones and gallbladder sludge. BILE DUCTS: No significant abnormality. Common bile duct measures 4 mm. RIGHT KIDNEY: No significant abnormality visualized. FREE FLUID: None. ADDITIONAL FINDINGS: None. IMPRESSION: 1. Cholelithiasis. - Medical Decision Making 36-year-old -Citizen Of [place] female patient presents with complaints of ep igastric/right upper quadrant pain and nausea x4 days. Patient reports a history of GERD and states that she is currently taking Dexilant daily. Patient also reports she had an endoscopy performed on 08/28/2021 that was negative for ulcers or H. pylori. She reports pain seems to worsen immediately after eating. She rates her current pain as a 9/10 in severity. No history of abdominal surgeries, fever/chills/sweats, urinary symptoms, vaginal pain/discharge, or dyspareunia per patient. She also denies any cough or chest pain or shortness of breath No acute abnormalities noted on labs. Ultrasound shows cholelithiasis without cholecystitis. Suspect biliary colic. Recommend patient follows up with her GI specialist for further evaluation and treatment. Meds given for home for pain control. She is otherwise well-appearing, her vitals are within normal limits, she is stable for discharge home. Strict return precautions were discussed in detail with patient who verbalizes understanding Critical care attestation.: If time is entered above; I have spent that time in minutes in the direct care of this critically ill patient, excluding procedure time. ED Disposition Clinical Impression: Biliary colic, Upper abdominal pain Disposition: HOME / SELF CARE / HOMELESS Is pt being admited?: No Condition: Stable Instructions: Abdominal Pain (ED), Biliary Colic, Adult, Cholelithiasis, [id number] Additional Instructions: Please follow-up with your telecom specialist within 1 week Prescriptions: Dicyclomine [Bentyl] 20 mg PO QID PRN #30 tablet PRN Reason: abdominal pain Acetaminophen/Codeine [Tylenol /Codeine # 3 tab] 1 tab PO Q8H PRN #15 tab PRN Reason: Pain , Severe (7-10) Ondansetron [Zofran Odt] 4 mg PO Q8HR PRN #30 tab.rapdis PRN Reason: Nausea Forms: Work/School Release Form(ED)
--- NOTE | 2021-09-16 20:24 | Ultrasound Report ---
LIMITED RUQ ABDOMINAL ULTRASOUND INDICATION / CLINICAL INFORMATION: acute RUQ pain. COMPARISON: No relevant prior imaging study available. FINDINGS: PANCREAS: Visualized portions show no significant abnormality. ABDOMINAL AORTA: No significant abnormality. IVC: No significant abnormality.. LIVER: The liver measures 15.6 cm in length. No significant abnormality. Normal hepatopedal blood fl ow in the main portal vein. GALLBLADDER: Calcified gallstones and gallbladder sludge. BILE DUCTS: No significant abnormality. Common bile duct measures 4 mm. RIGHT KIDNEY: No significant abnormality visualized. FREE FLUID: None. ADDITIONAL FINDINGS: None. IMPRESSION: 1. Cholelithiasis. Signer Name: Agustín Herman MD Signed: 09/16/2021 8:20 PM Workstation Name: [id number]
[2021-09-16] MEDS ORDERED: KETOROLAC 30 MG/1 ML INJ IV ONE (20:37)
[2021-09-16 21:10] VITALS: BP 117/76
== END 2021-09-16 21:10 | disposition home or self-care (01) ==
LOC: ED 13:56
DX: R10.11 Right upper quadrant pain (principal); K21.9 Gastro-esophageal reflux disease without esophagitis; F41.9 Anxiety disorder, unspecified; J45.909 Unspecified asthma, uncomplicated; Z88.6 Allergy status to analgesic agent; Z88.1 Allergy status to other antibiotic agents; Z91.09 Other allergy status, other than to drugs and biological substances
CPT/HCPCS: 36415; 76705; 80053; 81001; 83690; 84703; 85025; 87086; 96374; 96375; 99284; J1885; J2270; J2405

== ENCOUNTER 2021-10-16 00:02 | Emergency (ER) | payer OTHER ==
[2021-10-16 00:13] VITALS: BP 112/74
== END 2021-10-16 07:00 | disposition left against medical advice (07) ==
LOC: ED 00:02
DX: R06.2 Wheezing (principal); Z53.21 Procedure and treatment not carried out due to patient leaving prior to being seen by health care provider

== ENCOUNTER 2021-10-19 20:36 | Emergency (ER) | payer OTHER ==
[2021-10-19] MEDS ORDERED: methylPREDNISolone Sod Succinate 125 MG/2 ML INJ IM ONE (23:27)
[2021-10-20 00:07] VITALS: BP 114/75
[2021-10-20] MEDS ORDERED: IPRATROPIUM/ALBUTEROL SULFATE 3 ML AMPUL.NEB IH ONE ×2 (00:36→00:42)
--- NOTE | 2021-10-20 01:09 | Emergency Department Report ---
ED Shortness of Breath HPI - General Chief Complaint: Adult Asthma Stated Complaint: ASTHMA FLARE UP Source: patient Mode of arrival: Ambulatory Limitations: No Limitations - History of Present Illness MD Complaint: shortness of breath, cough, chest pain (Tightness), "asthma attack" -: Sudden, week(s) (1) Severity: moderate Pain Scale: 5 Quality: dull, other (tightness) Consistency: constant Improves With: nothing Worsens With: nothing Known History Of: asthma Context: recent URI, allergen exposure Associated Symptoms: chest pain (tightness), cough Treatments Prior to Arrival: bronchodilator - Related Data Home Oxygen Therapy: No Previous Rx's Medication Instructions Recorded Last Taken Type LORazepam [Ativan] 0.5 mg PO BID PRN #20 tab 12/05/16 Unknown Rx Ondansetron [Zofran Odt] 4 mg PO TID PRN #25 tab.rapdis 12/05/16 Unknown Rx Promethazine [Phenergan TAB] 25 mg PO Q8HR PRN #25 tab 12/05/16 Unknown Rx Loperamide [Imodium] 2 mg PO Q2HR #15 capsule 12/05/17 Unknown Rx Mag Hydrox/Aluminum Hyd/Simeth 30 ml PO QID PRN #1 bottle 12/05/17 Unknown Rx [Maalox Advanced Suspension] Ondansetron [Zofran Odt] 4 mg PO Q8H PRN #20 tab.rapdis 12/05/17 Unknown Rx Fluconazole (Nf) [Diflucan TAB] 150 mg PO ONCE #1 tablet 02/21/18 Unknown Rx HYDROcodone/APAP 5-325 [[place] 1 - 2 each PO Q6HR PRN #10 tablet 02/21/18 Unknown Rx 5/325] ALBUTEROL Inhaler(NF) [VENTOLIN 1 puff IH PRN #1 inha 05/19/18 Unknown Rx Inhaler(NF)] Dextromethorphan HBr [Tussin Cough] 15 mg PO TID 7 Days #1 bottle 05/19/18 Unknown Rx Ibuprofen [Motrin 800 MG tab] 800 mg PO Q8HR PRN #20 tablet 05/19/18 Unknown Rx predniSONE 10 mg PO QDAY #4 tab 05/19/18 Unknown Rx Benzonatate [Tessalon Perles] 100 mg PO Q8HR PRN #20 capsule 06/23/18 Unknown Rx Hydrocodone/Chlorphen P-Stirex 115 ml PO Q12HR PRN #180 skip.er.12h 06/23/18 Unknown Rx [Tussionex Pennkinetic Susp] Fluconazole [Diflucan TAB] 100 mg PO BID #2 tablet 06/28/18 Unknown Rx ALBUTEROL Inhaler(NF) [VENTOLIN 2 puff IH Q4HR #1 inha 07/26/18 Unknown Rx Inhaler(NF)] Azithromycin [Zithromax Z-MEREDITH] 250 mg PO DAILY #6 tablet 07/26/18 Unknown Rx Brompheniramine/Pseudoephed/Dm 10 ml PO Q4-6H PRN #200 syrup 07/26/18 Unknown Rx [Bromfed Dm 2-30-10 mg/5 ml Syr] Diclofenac Sodium 50 mg PO BID #20 tablet.dr 07/26/18 Unknown Rx predniSONE [Deltasone] 20 mg PO DAILY #15 tab 07/26/18 Unknown Rx Albuterol Sulfate [Proventil Hfa] 6.7 gm IH BID #1 hfa.aer.ad 08/17/18 Unknown Rx predniSONE [Deltasone] 20 mg PO DAILY #15 tablet 08/17/18 Unknown Rx Azithromycin [Zithromax] 500 mg PO QDAY #3 tablet 01/02/21 Unknown Rx predniSONE [Deltasone] 50 mg PO QDAY #5 tab 01/02/21 Unknown Rx Ondansetron [Zofran Odt] 4 mg PO Q8HR PRN #15 tab.rapdis 04/07/21 Unknown Rx Azithromycin [Zithromax Z-MEREDITH] 250 mg PO DAILY #6 tablet 04/10/21 Unknown Rx Benzonatate [Tessalon Perles] 100 mg PO Q8HR PRN #12 capsule 04/10/21 Unknown Rx Acetaminophen/Codeine [Tylenol 1 tab PO Q8H PRN #15 tab 09/16/21 Unknown Rx /Codeine # 3 tab] Dicyclomine [Bentyl] 20 mg PO QID PRN #30 tablet 09/16/21 Unknown Rx Ondansetron [Zofran Odt] 4 mg PO Q8HR PRN #30 tab.rapdis 09/16/21 Unknown Rx Benzonatate [Tessalon Perles] 100 mg PO Q8HR #30 capsule 10/20/21 Unknown Rx Montelukast [Singulair] 10 mg PO QPM #30 tablet 10/20/21 Unknown Rx Prednisone [predniSONE 10 mg 10 mg PO .TAPER #1 tab.ds.pk 10/20/21 Unknown Rx (6-Day Pack, 21 Tabs)] Allergies Allergy/AdvReac Type Severity Reaction Status Date / Time hydroxyzine HCl Allergy Shortness Verified 09/16/21 14:06 [From Vistaril] of Breath hydroxyzine pamoate Allergy Shortness Verified 09/16/21 14:06 [From Vistaril] of Breath methocarbamol [From Robaxin] Allergy Shortness Verified 09/16/21 14:06 of Breath sulfamethoxazole Allergy Hives Verified 09/16/21 14:06 [From Bactrim] trimethoprim [From Bactrim] Allergy Hives Verified 09/16/21 14:06 ED Review of Systems ROS: Stated complaint: ASTHMA FLARE UP Other details as noted in HPI ED Past Medical Hx - Past Medical History Hx GERD: Yes Hx Psychiatric Treatment: Yes (anxiety,depression) Hx Asthma: Yes Additional medical history: anemia, GERD - Social History Smoking Status: Never Smoker Substance Use Type: None - Medications Home Medications: Home Medications Medication Instructions Recorded Confirmed Last Taken Type LORazepam [Ativan] 0.5 mg PO BID PRN #20 tab 12/05/16 Unknown Rx Ondansetron [Zofran Odt] 4 mg PO TID PRN #25 tab.rapdis 12/05/16 Unknown Rx Promethazine [Phenergan TAB] 25 mg PO Q8HR PRN #25 tab 12/05/16 Unknown Rx Loperamide [Imodium] 2 mg PO Q2HR #15 capsule 12/05/17 Unknown Rx Mag Hydrox/Aluminum Hyd/Simeth 30 ml PO QID PRN #1 bottle 12/05/17 Unknown Rx [Maalox Advanced Suspension] Ondansetron [Zofran Odt] 4 mg PO Q8H PRN #20 tab.rapdis 12/05/17 Unknown Rx Fluconazole (Nf) [Diflucan TAB] 150 mg PO ONCE #1 tablet 02/21/18 Unknown Rx HYDROcodone/APAP 5-325 [[place] 1 - 2 each PO Q6HR PRN #10 tablet 02/21/18 Unknown Rx 5/325] ALBUTEROL Inhaler(NF) [VENTOLIN 1 puff IH PRN #1 inha 05/19/18 Unknown Rx Inhaler(NF)] Dextromethorphan HBr [Tussin Cough] 15 mg PO TID 7 Days #1 bottle 05/19/18 Unknown Rx Ibuprofen [Motrin 800 MG tab] 800 mg PO Q8HR PRN #20 tablet 05/19/18 Unknown Rx predniSONE 10 mg PO QDAY #4 tab 05/19/18 Unknown Rx Benzonatate [Tessalon Perles] 100 mg PO Q8HR PRN #20 capsule 06/23/18 Unknown Rx Hydrocodone/Chlorphen P-Stirex 115 ml PO Q12HR PRN #180 skip.er.12h 06/23/18 Unknown Rx [Tussionex Pennkinetic Susp] Fluconazole [Diflucan TAB] 100 mg PO BID #2 tablet 06/28/18 Unknown Rx ALBUTEROL Inhaler(NF) [VENTOLIN 2 puff IH Q4HR #1 inha 07/26/18 Unknown Rx Inhaler(NF)] Azithromycin [Zithromax Z-MEREDITH] 250 mg PO DAILY #6 tablet 07/26/18 Unknown Rx Brompheniramine/Pseudoephed/Dm 10 ml PO Q4-6H PRN #200 syrup 07/26/18 Unknown Rx [Bromfed Dm 2-30-10 mg/5 ml Syr] Diclofenac Sodium 50 mg PO BID #20 tablet.dr 07/26/18 Unknown Rx predniSONE [Deltasone] 20 mg PO DAILY #15 tab 07/26/18 Unknown Rx Albuterol Sulfate [Proventil Hfa] 6.7 gm IH BID #1 hfa.aer.ad 08/17/18 Unknown Rx predniSONE [Deltasone] 20 mg PO DAILY #15 tablet 08/17/18 Unknown Rx Azithromycin [Zithromax] 500 mg PO QDAY #3 tablet 01/02/21 Unknown Rx predniSONE [Deltasone] 50 mg PO QDAY #5 tab 01/02/21 Unknown Rx Ondansetron [Zofran Odt] 4 mg PO Q8HR PRN #15 tab.rapdis 04/07/21 Unknown Rx Azithromycin [Zithromax Z-MEREDITH] 250 mg PO DAILY #6 tablet 04/10/21 Unknown Rx Benzonatate [Tessalon Perles] 100 mg PO Q8HR PRN #12 capsule 04/10/21 Unknown Rx Acetaminophen/Codeine [Tylenol 1 tab PO Q8H PRN #15 tab 09/16/21 Unknown Rx /Codeine # 3 tab] Dicyclomine [Bentyl] 20 mg PO QID PRN #30 tablet 09/16/21 Unknown Rx Ondansetron [Zofran Odt] 4 mg PO Q8HR PRN #30 tab.rapdis 09/16/21 Unknown Rx Benzonatate [Tessalon Perles] 100 mg PO Q8HR #30 capsule 10/20/21 Unknown Rx Montelukast [Singulair] 10 mg PO QPM #30 tablet 10/20/21 Unknown Rx Prednisone [predniSONE 10 mg 10 mg PO .TAPER #1 tab.ds.pk 10/20/21 Unknown Rx (6-Day Pack, 21 Tabs)] ED Physical Exam - General Limitations: No Limitations ED Course Vital Signs 10/19/21 10/20/21 10/20/21 20:45 00:04 00:05 Temperature 98.9 F Pulse Rate 84 88 Pulse Rate [ Anterior Bilateral Throughout] Pulse Rate [ Posterior Bilateral Throughout] Respiratory 12 18 Rate Respiratory Rate [Anterior Bilateral Throughout] Respiratory Rate [Posterior Bilateral Throughout] Blood Pressure 120/81 Blood Pressure 114/75 [Left] O2 Sat by Pulse 100 96 98 Oximetry 10/20/21 00:45 Temperature Pulse Rate Pulse Rate [ 85 Anterior Bilateral Throughout] Pulse Rate [ 88 Posterior Bilateral Throughout] Respiratory Rate Respiratory 16 Rate [Anterior Bilateral Throughout] Respiratory 16 Rate [Posterior Bilateral Throughout] Blood Pressure Blood Pressure [Left] O2 Sat by Pulse Oximetry Critical care attestation.: If time is entered above; I have spent that time in minutes in the direct care of this critically ill patient, excluding procedure time. ED Disposition Clinical Impression: Shortness of breath Asthmatic bronchitis with acute exacerbation Qualifiers: Asthma severity: mild Asthma persistence: persistent Qualified Code(s): J45.31 - Mild persistent asthma with (acute) exacerbation Disposition: 01 HOME / SELF CARE / HOMELESS Is pt being admited?: No Does the pt Need Aspirin: No Condition: Stable Instructions: Shortness of Breath, Adult, [id number], Cough, Adult, Easy-to- Read, Asthma, Adult, [id number], Chronic Bronchitis, Adult Additional Instructions: Take medication with food, drink plenty fluids and follow-up with your primary care physician in 3 to 5 days for reevaluation. Return to the ED immediately if symptoms get worse. Prescriptions: Prednisone [predniSONE 10 mg (6-Day Pack, 21 Tabs)] 10 mg PO .TAPER #1 tab.ds.pk Montelukast [Singulair] 10 mg PO QPM #30 tablet Benzonatate [Tessalon Perles] 100 mg PO Q8HR #30 capsule Referrals: [facility] [Provider Group] - 3-5 Days Time of Disposition: 01:07 Print Language: THAI
[2021-10-20] MEDS ORDERED: IPRATROPIUM/ALBUTEROL SULFATE 3 ML AMPUL.NEB IH SCH (08:00)
== END 2021-10-20 01:20 | disposition home or self-care (01) ==
LOC: ED 20:36
DX: J45.901 Unspecified asthma with (acute) exacerbation (principal); K21.9 Gastro-esophageal reflux disease without esophagitis; F41.9 Anxiety disorder, unspecified; F32.9 Major depressive disorder, single episode, unspecified; Z88.8 Allergy status to other drugs, medicaments and biological substances; Z88.2 Allergy status to sulfonamides; Z79.899 Other long term (current) drug therapy
CPT/HCPCS: 94640; 96372; 99282; J2930; 94644

== ENCOUNTER 2021-11-07 00:05 | Emergency (ER) | payer OTHER | END 2021-11-07 01:38 | disposition left against medical advice (07) | LOC: ED 00:05 | DX: T17.208A Unspecified foreign body in pharynx causing other injury, initial encounter (principal); Z53.21 Procedure and treatment not carried out due to patient leaving prior to being seen by health care provider; X58.XXXA Exposure to other specified factors, initial encounter; Y93.89 Activity, other specified; Y92.89 Other specified places as the place of occurrence of the external cause; Y99.8 Other external cause status ==

== ENCOUNTER 2021-11-15 17:24 | Emergency (ER) | payer OTHER ==
[2021-11-15 18:21] VITALS: BP 158/114
--- NOTE | 2021-11-15 18:37 | XRay Report ---
CHEST 2 VIEWS INDICATION / CLINICAL INFORMATION: asthma. Dyspnea FINDINGS: SUPPORT DEVICES: None. HEART / MEDIASTINUM: No significant abnormality. LUNGS / PLEURA: No significant pulmonary or pleural abnormality. No pneumothorax. ADDITIONAL FINDINGS: No significant additional findings. IMPRESSION: 1. No acute findings. Signer Name: Reji Mckinney MD Signed: 11/15/2021 6:33 PM Workstation Name: [facility]
== END 2021-11-15 20:00 | disposition left against medical advice (07) ==
LOC: ED 17:24
DX: R09.81 Nasal congestion (principal); J45.909 Unspecified asthma, uncomplicated; Z53.21 Procedure and treatment not carried out due to patient leaving prior to being seen by health care provider
CPT/HCPCS: 71046

== ENCOUNTER 2021-12-08 21:27 | Emergency (ER) | payer OTHER ==
[2021-12-08 21:36] VITALS: BP 121/80
[2021-12-09] MEDS ORDERED: dexAMETHasone 4 MG/ML VIAL IM ONE (01:58)
--- NOTE | 2021-12-09 02:16 | Emergency Department Report ---
ED Allergic Reaction HPI - General Chief complaint: Allergic Reaction Stated complaint: ALLERGIC REACTION Time Seen by Provider: 12/09/21 01:55 Source: patient Mode of arrival: Ambulatory Limitations: No Limitations - History of Present Illness Initial Comments: 36-year-old [place] female past medical history of asthma presents emerged department complaining of having a reaction to the Motrin that she had taken. Reports taking Motrin but to have [place] and then began to develop wheezing and tightness across her chest with diffuse pruritus. Reports no fever, chills, sweats. No nausea, no vomiting, no diarrhea, no hemoptysis no hematemesis hematochezia Complaint: allergic reaction -: Gradual Severity: mild, moderate Treatment Prior to Arrival: none Previous Allergy History: none - Related Data Previous Rx's Medication Instructions Recorded Last Taken Type LORazepam [Ativan] 0.5 mg PO BID PRN #20 tab 12/05/16 Unknown Rx Ondansetron [Zofran Odt] 4 mg PO TID PRN #25 tab.rapdis 12/05/16 Unknown Rx Promethazine [Phenergan TAB] 25 mg PO Q8HR PRN #25 tab 12/05/16 Unknown Rx Loperamide [Imodium] 2 mg PO Q2HR #15 capsule 12/05/17 Unknown Rx Mag Hydrox/Aluminum Hyd/Simeth 30 ml PO QID PRN #1 bottle 12/05/17 Unknown Rx [Maalox Advanced Suspension] Ondansetron [Zofran Odt] 4 mg PO Q8H PRN #20 tab.rapdis 12/05/17 Unknown Rx Fluconazole (Nf) [Diflucan TAB] 150 mg PO ONCE #1 tablet 02/21/18 Unknown Rx HYDROcodone/APAP 5-325 [[place] 1 - 2 each PO Q6HR PRN #10 tablet 02/21/18 Unknown Rx 5/325] ALBUTEROL Inhaler(NF) [VENTOLIN 1 puff IH PRN #1 inha 05/19/18 Unknown Rx Inhaler(NF)] Dextromethorphan HBr [Tussin Cough] 15 mg PO TID 7 Days #1 bottle 05/19/18 Unknown Rx Ibuprofen [Motrin 800 MG tab] 800 mg PO Q8HR PRN #20 tablet 05/19/18 Unknown Rx predniSONE 10 mg PO QDAY #4 tab 05/19/18 Unknown Rx Benzonatate [Tessalon Perles] 100 mg PO Q8HR PRN #20 capsule 06/23/18 Unknown Rx Hydrocodone/Chlorphen P-Stirex 115 ml PO Q12HR PRN #180 skip.er.12h 06/23/18 Unknown Rx [Tussionex Pennkinetic Susp] Fluconazole [Diflucan TAB] 100 mg PO BID #2 tablet 06/28/18 Unknown Rx ALBUTEROL Inhaler(NF) [VENTOLIN 2 puff IH Q4HR #1 inha 07/26/18 Unknown Rx Inhaler(NF)] Azithromycin [Zithromax Z-MEREDITH] 250 mg PO DAILY #6 tablet 07/26/18 Unknown Rx Brompheniramine/Pseudoephed/Dm 10 ml PO Q4-6H PRN #200 syrup 07/26/18 Unknown Rx [Bromfed Dm 2-30-10 mg/5 ml Syr] Diclofenac Sodium 50 mg PO BID #20 tablet.dr 07/26/18 Unknown Rx predniSONE [Deltasone] 20 mg PO DAILY #15 tab 07/26/18 Unknown Rx Albuterol Sulfate [Proventil Hfa] 6.7 gm IH BID #1 hfa.aer.ad 08/17/18 Unknown Rx predniSONE [Deltasone] 20 mg PO DAILY #15 tablet 08/17/18 Unknown Rx Azithromycin [Zithromax] 500 mg PO QDAY #3 tablet 01/02/21 Unknown Rx predniSONE [Deltasone] 50 mg PO QDAY #5 tab 01/02/21 Unknown Rx Ondansetron [Zofran Odt] 4 mg PO Q8HR PRN #15 tab.rapdis 04/07/21 Unknown Rx Azithromycin [Zithromax Z-MEREDITH] 250 mg PO DAILY #6 tablet 04/10/21 Unknown Rx Benzonatate [Tessalon Perles] 100 mg PO Q8HR PRN #12 capsule 04/10/21 Unknown Rx Acetaminophen/Codeine [Tylenol 1 tab PO Q8H PRN #15 tab 09/16/21 Unknown Rx /Codeine # 3 tab] Dicyclomine [Bentyl] 20 mg PO QID PRN #30 tablet 09/16/21 Unknown Rx Ondansetron [Zofran Odt] 4 mg PO Q8HR PRN #30 tab.rapdis 09/16/21 Unknown Rx Benzonatate [Tessalon Perles] 100 mg PO Q8HR #30 capsule 10/20/21 Unknown Rx Montelukast [Singulair] 10 mg PO QPM #30 tablet 10/20/21 Unknown Rx Prednisone [predniSONE 10 mg 10 mg PO .TAPER #1 tab.ds.pk 10/20/21 Unknown Rx (6-Day Pack, 21 Tabs)] Desloratadine [Clarinex] 5 mg PO DAILY #7 12/09/21 Unknown Rx Montelukast [Singulair] 10 mg PO QPM #14 tablet 12/09/21 Unknown Rx predniSONE [Deltasone] 20 mg PO QDAY #5 tab 12/09/21 Unknown Rx Allergies Allergy/AdvReac Type Severity Reaction Status Date / Time hydroxyzine HCl Allergy Shortness Verified 12/08/21 21:36 [From Vistaril] of Breath hydroxyzine pamoate Allergy Shortness Verified 12/08/21 21:36 [From Vistaril] of Breath ibuprofen Allergy Itching Verified 12/08/21 21:36 methocarbamol [From Robaxin] Allergy Shortness Verified 12/08/21 21:36 of Breath sulfamethoxazole Allergy Hives Verified 12/08/21 21:36 [From Bactrim] trimethoprim [From Bactrim] Allergy Hives Verified 12/08/21 21:36 ED Review of Systems ROS: Stated complaint: ALLERGIC REACTION Other details as noted in HPI Comment: All other systems reviewed and negative ED Past Medical Hx - Past Medical History Previous Medical History?: Yes Hx GERD: Yes Hx Psychiatric Treatment: Yes (anxiety,depression) Hx Asthma: Yes Additional medical history: anemia, GERD - Surgical History Past Surgical History?: No - Social History Smoking Status: Never Smoker Substance Use Type: None - Medications Home Medications: Home Medications Medication Instructions Recorded Confirmed Last Taken Type LORazepam [Ativan] 0.5 mg PO BID PRN #20 tab 12/05/16 Unknown Rx Ondansetron [Zofran Odt] 4 mg PO TID PRN #25 tab.rapdis 12/05/16 Unknown Rx Promethazine [Phenergan TAB] 25 mg PO Q8HR PRN #25 tab 12/05/16 Unknown Rx Loperamide [Imodium] 2 mg PO Q2HR #15 capsule 12/05/17 Unknown Rx Mag Hydrox/Aluminum Hyd/Simeth 30 ml PO QID PRN #1 bottle 12/05/17 Unknown Rx [Maalox Advanced Suspension] Ondansetron [Zofran Odt] 4 mg PO Q8H PRN #20 tab.rapdis 12/05/17 Unknown Rx Fluconazole (Nf) [Diflucan TAB] 150 mg PO ONCE #1 tablet 02/21/18 Unknown Rx HYDROcodone/APAP 5-325 [[place] 1 - 2 each PO Q6HR PRN #10 tablet 02/21/18 Unknown Rx 5/325] ALBUTEROL Inhaler(NF) [VENTOLIN 1 puff IH PRN #1 inha 05/19/18 Unknown Rx Inhaler(NF)] Dextromethorphan HBr [Tussin Cough] 15 mg PO TID 7 Days #1 bottle 05/19/18 Unknown Rx Ibuprofen [Motrin 800 MG tab] 800 mg PO Q8HR PRN #20 tablet 05/19/18 Unknown Rx predniSONE 10 mg PO QDAY #4 tab 05/19/18 Unknown Rx Benzonatate [Tessalon Perles] 100 mg PO Q8HR PRN #20 capsule 06/23/18 Unknown Rx Hydrocodone/Chlorphen P-Stirex 115 ml PO Q12HR PRN #180 skip.er.12h 06/23/18 Unknown Rx [Tussionex Pennkinetic Susp] Fluconazole [Diflucan TAB] 100 mg PO BID #2 tablet 06/28/18 Unknown Rx ALBUTEROL Inhaler(NF) [VENTOLIN 2 puff IH Q4HR #1 inha 07/26/18 Unknown Rx Inhaler(NF)] Azithromycin [Zithromax Z-MEREDITH] 250 mg PO DAILY #6 tablet 07/26/18 Unknown Rx Brompheniramine/Pseudoephed/Dm 10 ml PO Q4-6H PRN #200 syrup 07/26/18 Unknown Rx [Bromfed Dm 2-30-10 mg/5 ml Syr] Diclofenac Sodium 50 mg PO BID #20 tablet.dr 07/26/18 Unknown Rx predniSONE [Deltasone] 20 mg PO DAILY #15 tab 07/26/18 Unknown Rx Albuterol Sulfate [Proventil Hfa] 6.7 gm IH BID #1 hfa.aer.ad 08/17/18 Unknown Rx predniSONE [Deltasone] 20 mg PO DAILY #15 tablet 08/17/18 Unknown Rx Azithromycin [Zithromax] 500 mg PO QDAY #3 tablet 01/02/21 Unknown Rx predniSONE [Deltasone] 50 mg PO QDAY #5 tab 01/02/21 Unknown Rx Ondansetron [Zofran Odt] 4 mg PO Q8HR PRN #15 tab.rapdis 04/07/21 Unknown Rx Azithromycin [Zithromax Z-MEREDITH] 250 mg PO DAILY #6 tablet 04/10/21 Unknown Rx Benzonatate [Tessalon Perles] 100 mg PO Q8HR PRN #12 capsule 04/10/21 Unknown Rx Acetaminophen/Codeine [Tylenol 1 tab PO Q8H PRN #15 tab 09/16/21 Unknown Rx /Codeine # 3 tab] Dicyclomine [Bentyl] 20 mg PO QID PRN #30 tablet 09/16/21 Unknown Rx Ondansetron [Zofran Odt] 4 mg PO Q8HR PRN #30 tab.rapdis 09/16/21 Unknown Rx Benzonatate [Tessalon Perles] 100 mg PO Q8HR #30 capsule 10/20/21 Unknown Rx Montelukast [Singulair] 10 mg PO QPM #30 tablet 10/20/21 Unknown Rx Prednisone [predniSONE 10 mg 10 mg PO .TAPER #1 tab.ds.pk 10/20/21 Unknown Rx (6-Day Pack, 21 Tabs)] Desloratadine [Clarinex] 5 mg PO DAILY #7 12/09/21 Unknown Rx Montelukast [Singulair] 10 mg PO QPM #14 tablet 12/09/21 Unknown Rx predniSONE [Deltasone] 20 mg PO QDAY #5 tab 12/09/21 Unknown Rx ED Physical Exam - General Limitations: No Limitations General appearance: alert, in no apparent distress - Head Head exam: Present: atraumatic, normocephalic - Eye Eye exam: Present: normal appearance, PERRL, EOMI Pupils: Present: normal accommodation - ENT ENT exam: Present: mucous membranes moist - Neck Neck exam: Present: normal inspection - Respiratory Respiratory exam: Present: normal lung sounds bilaterally. Absent: respiratory distress - Cardiovascular Cardiovascular Exam: Present: regular rate, normal rhythm. Absent: systolic murmur, diastolic murmur, rubs, gallop - GI/Abdominal GI/Abdominal exam: Present: soft, normal bowel sounds - Extremities Exam Extremities exam: Present: normal inspection - Back Exam Back exam: Present: normal inspection - Neurological Exam Neurological exam: Present: alert, oriented X3 - Psychiatric Psychiatric exam: Present: normal affect, normal mood - Skin Skin exam: Present: warm, dry, intact, normal color. Absent: rash ED Course Vital Signs 12/08/21 21:33 Temperature 98.5 F Pulse Rate 91 H Respiratory 18 Rate Blood Pressure 121/80 [Left] O2 Sat by Pulse 100 Oximetry Critical care attestation.: If time is entered above; I have spent that time in minutes in the direct care of this critically ill patient, excluding procedure time. ED Disposition Clinical Impression: Allergic reaction Disposition: 01 HOME / SELF CARE / HOMELESS Is pt being admited?: No Does the pt Need Aspirin: No Condition: Stable Instructions: Allergies, Adult, [id number], How to Use an Auto-Injector Pen Prescriptions: Desloratadine [Clarinex] 5 mg PO DAILY #7 predniSONE [Deltasone] 20 mg PO QDAY #5 tab Montelukast [Singulair] 10 mg PO QPM #14 tablet Referrals: [facility] [Provider Group] - 3-5 Days
== END 2021-12-09 09:16 | disposition home or self-care (01) ==
LOC: ED 21:27
DX: T78.40XA Allergy, unspecified, initial encounter (principal); K21.9 Gastro-esophageal reflux disease without esophagitis; F32.A Depression, unspecified; J45.909 Unspecified asthma, uncomplicated; Z88.6 Allergy status to analgesic agent; Z88.1 Allergy status to other antibiotic agents; Z91.09 Other allergy status, other than to drugs and biological substances; Z79.899 Other long term (current) drug therapy; X58.XXXA Exposure to other specified factors, initial encounter
CPT/HCPCS: 96372; 99281; J1100

== ENCOUNTER 2021-12-11 20:52 | Emergency (ER) | payer OTHER ==
[2021-12-11 23:15] LABS: Basophils % (Auto) 0.3 % (0.0-1.8); Eosinophils % (Auto) 0.1 % (0.0-4.3); Hematocrit 34.1 % (30.3-42.9); Hemoglobin 10.4 gm/dl (10.1-14.3); Lymphocytes # (Auto) 1.2 K/mm3 (1.2-5.4); Lymphocytes % (Auto) 14.1 % (13.4-35.0); Mean Corpuscular HGB Conc 31 % (30-34); Mean Corpuscular Volume 78 fl (79-97); Monocytes # (Auto) 0.5 K/mm3 (0.0-0.8); Monocytes % (Auto) 5.6 % (0.0-7.3); Platelet Count 382 K/mm3 (140-440); Red Blood Count 4.38 M/mm3 (3.65-5.03); Red Cell Distribution Width 17.4 % (13.2-15.2)
[2021-12-11 23:37] LABS: Alanine Aminotransferase 19 units/L (7-56); Albumin 4.2 g/dL (3.9-5); BUN/Creatinine Ratio 10; Blood Urea Nitrogen 8 mg/dL (7-17); Calcium 9.9 mg/dL (8.4-10.2); Hemolysis Index 0
--- NOTE | 2021-12-11 23:38 | XRay Report ---
CHEST 2 VIEWS INDICATION / CLINICAL INFORMATION: CHEST PAIN. COMPARISON: 11/15/2021 FINDINGS: SUPPORT DEVICES: None. HEART / MEDIASTINUM: No significant abnormality. LUNGS / PLEURA: No significant pulmonary or pleural abnormality. No pneumothorax. ADDITIONAL FINDINGS: No significant additional findings. IMPRESSION: 1. No acute findings. Signer Name: Ferny Vergara DO Signed: 12/11/2021 11:34 PM Workstation Name: [id number]
[2021-12-12] MEDS ORDERED: ALUM-MAG HYDROXIDE-SIMETHICONE 200-200-20MG/5ML ORAL LIQD 30 ML PO ONE (02:53)
[2021-12-12] MEDS ORDERED: LIDOCAINE VISCOUS 2% 15 ML ORAL LIQD PO ONE (02:53)
[2021-12-12 03:00] VITALS: BP 114/79
[2021-12-12] MEDS ORDERED: IBUPROFEN 800 MG TAB PO ONE (03:09)
[2021-12-12] MEDS ORDERED: ACETAMINOPHEN 500 MG TAB PO ONE (03:15)
--- NOTE | 2021-12-12 09:51 | Electrocardiograph Report ---
[facility] Test Date: 2021-12-11 Test Time: 21:30:10 Pat Name: AUGUSTO BUTTS Department: Room: Gender: F Chief Optometry Service: SALINA : 1985 Requested By: AYESHA AGUILLON Order Number: [id number] Reading MD: Karlos Bal Measurements Intervals [place] Rate: 82 P: 69 [place]: 113 QRS: 73 QRSD: 77 T: 28 QT: 388 QTc: 453 Interpretive Statements Sinus rhythm Compared to ECG 04/10/2021 09:01:28 No significant changes Electronically Signed On 12-12-2021 9:50:39 EDT by Karlos Bal
== END 2021-12-12 03:24 | disposition left against medical advice (07) ==
LOC: ED 20:52
DX: R07.9 Chest pain, unspecified (principal); R11.0 Nausea; Z53.21 Procedure and treatment not carried out due to patient leaving prior to being seen by health care provider
CPT/HCPCS: 36415; 71046; 80053; 84484; 85025; 93005

== ENCOUNTER 2022-02-02 21:26 | Emergency (ER) | payer OTHER ==
[2022-02-03 02:11] VITALS: BP 129/82
--- NOTE | 2022-02-05 13:50 | Electrocardiograph Report ---
[facility] Test Date: 2022-02-03 Test Time: 02:11:55 Pat Name: AUGUSTO BUTTS Department: Room: Gender: F [employer]: JAMES : 1985 Requested By: TEETEE VALDEZ Order Number: [id number] Reading MD: Guru Morales Measurements Intervals [place] Rate: 77 P: 56 [place]: 120 QRS: 52 QRSD: 77 T: 34 QT: 397 QTc: 450 Interpretive Statements Sinus rhythm Compared to ECG 12/11/2021 21:30:10 No significant changes Electronically Signed On 02-05-2022 13:49:59 EDT by Guru Morales
== END 2022-02-03 04:55 | disposition left against medical advice (07) ==
LOC: ED 21:26
DX: R07.89 Other chest pain (principal); R11.2 Nausea with vomiting, unspecified; R10.9 Unspecified abdominal pain; Z53.21 Procedure and treatment not carried out due to patient leaving prior to being seen by health care provider
CPT/HCPCS: 93005